=== PATIENT | female | born 1945 ===

== ENCOUNTER 2023-04-26 09:29 | Observation (INO) | payer MEDICARE ==
--- NOTE | 2023-04-26 10:23 | ED ---
Abdominal Pain HPI - General Source: patient, RN notes reviewed Mode of arrival: ambulatory Limitations: no limitations <Ventura Oleary - Last Filed: 04/26/23 10:21> <You Steven - Last Filed: 04/26/23 14:25> - General Chief Complaint: Abdominal Pain Stated Complaint: Abd Pain Time Seen by Provider: 04/26/23 10:21 - History of Present Illness Initial Comments: 77-year-old female presents emergency Department with chief complaint of right quadrant abdominal pain. Patient states is very severe last night as improved some but still having pain. She does state that she has diverticulosis she ate some popcorn but she has no lower abdominal pain. States pain radiated to her back, shoulder regions. Denies any chest pain. (Ventura Oleary) Patient was originally seen is a quick note. Briefly she is a 77-year-old female with history of hypertension and acid reflux who presents emergency Department claiming of epigastric abdominal discomfort. Patient states has started last night after she ate popcorn. Complaints of epigastric and right upper quadrant sharp, achy pain with nausea. No episodes of emesis. No diarrhea. Still passing gas. No constipation. No chest pain or shortness of breath. No fevers. No sick contacts. No history of abdominal surgeries. Presents for further evaluation of this time. (You Steven) - Related Data Home Medications Medication Instructions Recorded Confirmed Acetaminophen-Codeine 300-30mg 1 tab PO Q4-6H PRN 04/26/23 04/26/23 [Tylenol w/codeine #3] Ascorbic Acid [Vitamin C] 1,000 mg PO DAILY 04/26/23 04/26/23 Bacillus Coagulans [Digestive 1 tab PO DAILY 04/26/23 04/26/23 Advantage Probiotic Chew] Brimonidine Tartrate [Alphagan P 1 drop RIGHT EYE TID 04/26/23 04/26/23 0.2% Ophth Soln] Cholecalciferol [Vitamin D3 (25 50 mcg PO DAILY 04/26/23 04/26/23 Mcg = 1000 Iu)] Cyanocobalamin (Vitamin B-12) 1,000 mcg PO DAILY 04/26/23 04/26/23 [Vitamin B-12] Elderberry Fruit and Flower [Black 1 cap PO DAILY 04/26/23 04/26/23 Elderberry 575 mg Cap] Fish Oil/Dha/Epa [Fish Oil 1,200 1 cap PO DAILY 04/26/23 04/26/23 mg Fish Oil] Furosemide [Lasix] 20 mg PO DAILY 04/26/23 04/26/23 Losartan Potassium 50 mg PO DAILY 04/26/23 04/26/23 Multivitamins, Thera [Multivitamin 1 tab PO DAILY 04/26/23 04/26/23 (formulary)] Omeprazole 40 mg PO DAILY 04/26/23 04/26/23 Turmeric Root Extract [Turmeric] 500 mg PO DAILY 04/26/23 04/26/23 Ubidecarenone [Coenzyme Q10] 100 mg PO DAILY 04/26/23 04/26/23 Vit C/E/Zn/Coppr/Lutein/Zeaxan 1 cap PO DAILY 04/26/23 04/26/23 [Preservision Areds 2 Softgel] allopurinoL [Zyloprim] 300 mg PO DAILY 04/26/23 04/26/23 busPIRone HCL [Buspirone HCl] 7.5 mg PO BID 04/26/23 04/26/23 Allergies Allergy/AdvReac Type Severity Reaction Status Date / Time niacin Allergy Unknown Verified 04/26/23 12:26 tizanidine Allergy Unknown Verified 04/26/23 12:26 Review of Systems ROS Other: All systems not noted in ROS Statement are negative. <Ventuar Oleary - Last Filed: 04/26/23 10:21> ROS Other: All systems not noted in ROS Statement are negative. <You Steven - Last Filed: 04/26/23 14:25> ROS Statement: Those systems with pertinent positive or pertinent negative responses have been documented in the HPI. Review of Systems: CONST: Denies fever EYES: Denies blurry vision ENT: Denies nasal congestion C/V: Denies Chest pain RESP: Denies shortness of breath GI: Endorses abdominal pain : Denies dysuria SKIN: Denies rash. MSK: Denies joint pain. NEURO: Denies headache (You Steven) Past Medical History Past Medical History: Hypertension History of Any Multi-Drug Resistant Organisms: None Reported Past Surgical History: Hysterectomy Past Psychological History: Depression Past Alcohol Use History: None Reported Past Drug Use History: None Reported <Ventura Oleary - Last Filed: 04/26/23 10:21> General Exam Limitations: no limitations General appearance: alert, in no apparent distress Head exam: Present: atraumatic, normocephalic, normal inspection <Ventura Oleary - Last Filed: 04/26/23 10:21> <You Steven - Last Filed: 04/26/23 14:25> - General Exam Comments Initial Comments: Visual Physical Exam Vital signs reviewed General: Well-appearing, nontoxic, no acute distress. Head: Normocephalic, atraumatic Eyes: PERRLA, EOMI ENT: Airway patent Chest: Nonlabored breathing Skin: No visual rash, normal skin tone Neuro: Alert and oriented 3 Musculoskeletal: No gross abnormalities (Ventura Oleary) General: Appears in no acute distress. HEAD: Normal with no signs of head trauma. EYES: PERRLA, EOMI, conjunctiva normal, no discharge. ENT: Hearing grossly intact, normal oropharynx. RESPIRATORY: Clear breath sounds bilaterally. No wheezes, rales, or rhonchi. C/V: Regular rate and rhythm. S1 and S2 auscultated, no edema, peripheral pulses 2+ and intact throughout ABD: Abdomen is soft, nondistended. Tender to palpation epigastric and right upper quadrant. No guarding. No rebound tenderness. No peritoneal signs. EXT: Normal range of motion, no obvious deformity SKIN: No rashes or lesions observed on exposed skin. NEURO: Alert and Oriented 4. (You Steven) Course Vital Signs 04/26/23 09:49 Temperature 98.0 F Pulse Rate 45 L Respiratory 18 Rate Blood Pressure 119/79 O2 Sat by Pulse 98 Oximetry Medical Decision Making <Ventura Oleary - Last Filed: 04/26/23 10:21> - Lab Data Result diagrams: 04/26/23 11:49 04/26/23 11:49 - EKG Data -: EKG Interpreted by Me <You Steven - Last Filed: 04/26/23 14:25> - Medical Decision Making I performed a quick note portion of this Chart signed Ventura Oleary PA-C (Ventura Oleary) Was pt. sent in by a medical professional or institution (, [facility], [employer], urgent care, hospital, or skilled nursing...) When possible be specific @ -No Did you speak to anyone other than the patient for history (EMS, parent, family, police, friend...)? What history was obtained from this source @ -No Did you review nursing and triage notes (agree or disagree)? Why? @ -I reviewed and agree with nursing and triage notes Were old charts reviewed (outside hosp., previous admission, EMS record, old EKG, old radiological studies, urgent care reports/EKG's, skilled nursing records)? Report findings @ -Old charts reviewed Differential Diagnosis (chest pain, altered mental status, abdominal pain women, abdominal pain men, vaginal bleeding, weakness, fever, dyspnea, syncope, headache, dizziness, GI bleed, back pain, seizure, CVA, palpatations, mental health, musculoskeletal)? @ -Differential Abdominal Pain Women: Appendicitis, Cholecystitis, diverticulosis, ischemic bowel, pancreatitis, hepatitis, UTI, gastroenteritis, AAA, incarcerated hernia, bowel obstruction, constipation, inflammatory bowel, hepatitis, peptic ulcer disease, splenic infarction, perforated viscus, vulvitis, ovarian torsion, PID, kidney stone, placenta abruption, this is not meant to be an all-inclusive list EKG interpreted by me (3pts min.). @ -As above X-rays interpreted by me (1pt min.). @ -None done CT interpreted by me (1pt min.). @ -None done U/S interpreted by me (1pt. min.). @ -Ultrasound gallbladder suggestive of acute cholecystitis What testing was considered but not performed or refused? (CT, X-rays, U/S, labs)? Why? @ -None What meds were considered but not given or refused? Why? @ -None Did you discuss the management of the patient with other professionals (professionals i.e. , PA, [employer], lab, RT, psych nurse, elementary school social worker, internet merchant, teacher, housing officer, caser)? Give summary @ -Discussed with Dr. Beach who presented to the emergency department evaluated the patient bedside. Accepted the admission. Requested cardiac evaluation and medicine consult which were placed. I spoke with Dr. Ivory of medicine who agreed to consult for medical management. Patient was placed on Zosyn at her request as well. Was smoking cessation discussed for >3mins.? @ -No Was critical care preformed (if so, how long)? @ -No Were there social determinants of health that impacted care today? How? (Ho melessness, low income, unemployed, alcoholism, drug addiction, transportation, low edu. Level, literacy, decrease access to med. care, fci, rehab)? @ -No Was there de-escalation of care discussed even if they declined (Discuss DNR or withdrawal of care, Hospice)? DNR status @ -No What co-morbidities impacted this encounter? (DM, HTN, Smoking, COPD, CAD, Cancer, CVA, ARF, Chemo, Hep., AIDS, mental health diagnosis, sleep apnea, morbid obesity)? @ -None Was patient admitted / discharged? Hospital course, mention meds given and route, prescriptions, significant lab abnormalities, going to OR and other pertinent info. @ -Based on the patient's presentation and physical exam, appears that she presents with acute cholecystitis. We did obtain the abdominal work up as well as gallbladder workup. Workup was started in triage in color ultrasound returned before I evaluated the patient which revealed acute cholecystitis. I spoke with surgery on-call, Dr. Beach who was already in the department and was in agreement with the admission. Patient's labs remarkable for a leukocytosis of 15. No evidence of choledocholithiasis. Remainder of the labs within acceptable limits. Patient was symptomatically treated with IV fluids, IV pain medications, Zofran. She was started on maintenance fluids and started on Zosyn. She was made nothing by mouth. Patient was admitted in stable condition. Cardiology was consulted at Dr. Beach's request as well as an echo. EKG unremarkable. Medicine also consulted at her request for medical management and I spoke with Dr. Ivory who accepted the consult. Undiagnosed new problem with uncertain prognosis? @ -No Drug Therapy requiring intensive monitoring for toxicity (Heparin, Nitro, Insulin, Cardizem)? @ -No Were any procedures done? @ -No Diagnosis/symptom? @ -Cholecystitis Acute, or Chronic, or Acute on Chronic? @ -Acute Uncomplicated (without systemic symptoms) or Complicated (systemic symptoms)? @ -Complicated Side effects of treatment? @ -No Exacerbation, Progression, or Severe Exacerbation? @ -No Poses a threat to life or bodily function? How? (Chest pain, [place], OR, pneumonia, PE, COPD, DKA, ARF, appy, cholecystitis, CVA, Diverticulitis, Homicidal, Suicidal, threat to staff... and all critical care pts) @ -Yes (You Steven) - Lab Data Lab Results 04/26/23 04/26/23 04/26/23 Range/Units 11:49 11:49 11:49 WBC 15.0 H (3.8-10.6) k/uL RBC 4.52 (3.80-5.40) m/uL Hgb 14.1 (11.4-16.0) gm/dL Hct 44.4 (34.0-46.0) % MCV 98.1 (80.0-100.0) fL MCH 31.2 (25.0-35.0) pg MCHC 31.8 (31.0-37.0) g/dL RDW 13.9 (11.5-15.5) % Plt Count 231 (150-450) k/uL MPV 7.9 Neutrophils % 84 % Lymphocytes % 12 % Monocytes % 3 % Eosinophils % 1 % Basophils % 0 % Neutrophils # 12.6 H (1.3-7.7) k/uL Lymphocytes # 1.7 (1.0-4.8) k/uL Monocytes # 0.4 (0-1.0) k/uL Eosinophils # 0.1 (0-0.7) k/uL Basophils # 0.0 (0-0.2) k/uL Sodium 139 (137-145) mmol/L Potassium 4.8 (3.5-5.1) mmol/L Chloride 107 (98-107) mmol/L Carbon Dioxide 22 (22-30) mmol/L Anion Gap 10 mmol/L BUN 28 H (7-17) mg/dL Creatinine 0.62 (0.52-1.04) mg/dL Est GFR (CKD-EPI)AfAm >90 (>60 ml/min/1.73 sqM) Est GFR (CKD-EPI)NonAf 87 (>60 ml/min/1.73 sqM) Glucose 120 H (74-99) mg/dL Plasma Lactic Acid Edi 1.3 (0.7-2.0) mmol/L Calcium 9.8 (8.4-10.2) mg/dL Total Bilirubin 0.5 (0.2-1.3) mg/dL AST 34 (14-36) U/L ALT 22 (4-34) U/L Alkaline Phosphatase 62 (38-126) U/L Total Protein 7.1 (6.3-8.2) g/dL Albumin 4.4 (3.5-5.0) g/dL Lipase 205 (23-300) U/L Urine Color Urine Appearance (Clear) Urine pH (5.0-8.0) Ur Specific [place] (1.001-1.035) Urine Protein (Negative) Urine Glucose (UA) (Negative) Urine Ketones (Negative) Urine Blood (Negative) Urine Nitrite (Negative) Urine Bilirubin (Negative) Urine Urobilinogen (<2.0) mg/dL Ur Leukocyte Esterase (Negative) Urine RBC (0-5) /hpf Ur Squamous Epith Cells (0-4) /hpf Amorphous Sediment (None) /hpf Urine Mucus (None) /hpf Urine Yeast (Budding) (None) /hpf 04/26/23 Range/Units 13:54 WBC (3.8-10.6) k/uL RBC (3.80-5.40) m/uL Hgb (11.4-16.0) gm/dL Hct (34.0-46.0) % MCV (80.0-100.0) fL MCH (25.0-35.0) pg MCHC (31.0-37.0) g/dL RDW (11.5-15.5) % Plt Count (150-450) k/uL MPV Neutrophils % % Lymphocytes % % Monocytes % % Eosinophils % % Basophils % % Neutrophils # (1.3-7.7) k/uL Lymphocytes # (1.0-4.8) k/uL Monocytes # (0-1.0) k/uL Eosinophils # (0-0.7) k/uL Basophils # (0-0.2) k/uL Sodium (137-145) mmol/L Potassium (3.5-5.1) mmol/L Chloride (98-107) mmol/L Carbon Dioxide (22-30) mmol/L Anion Gap mmol/L BUN (7-17) mg/dL Creatinine (0.52-1.04) mg/dL Est GFR (CKD-EPI)AfAm (>60 ml/min/1.73 sqM) Est GFR (CKD-EPI)NonAf (>60 ml/min/1.73 sqM) Glucose (74-99) mg/dL Plasma Lactic Acid Edi (0.7-2.0) mmol/L Calcium (8.4-10.2) mg/dL Total Bilirubin (0.2-1.3) mg/dL AST (14-36) U/L ALT (4-34) U/L Alkaline Phosphatase (38-126) U/L Total Protein (6.3-8.2) g/dL Albumin (3.5-5.0) g/dL Lipase (23-300) U/L Urine Color Light Yellow Urine Appearance Cloudy H (Clear) Urine pH 7.0 (5.0-8.0) Ur Specific [place] 1.020 (1.001-1.035) Urine Protein Trace H (Negative) Urine Glucose (UA) Negative (Negative) Urine Ketones Negative (Negative) Urine Blood Negative (Negative) Urine Nitrite Negative (Negative) Urine Bilirubin Negative (Negative) Urine Urobilinogen <2.0 (<2.0) mg/dL Ur Leukocyte Esterase Negative (Negative) Urine RBC 2 (0-5) /hpf Ur Squamous Epith Cells 1 (0-4) /hpf Amorphous Sediment Rare H (None) /hpf Urine Mucus Rare H (None) /hpf Urine Yeast (Budding) Rare H (None) /hpf - EKG Data EKG Comments: 12-lead Electrocardiogram Interpretation Note EKG was reviewed and interpreted by myself. 12-lead ECG performed at 0957 is interpreted by me as revealing sinus bradycardia at a rate of 47 beats per minute. Left axis deviation. UT interval is 195 ms, QRS durations 122 ms, QTc is 435 ms.. There were no ST or T wave abnormalities to suggest myocardial ischemia or injury. R wave progression across the precordium was delayed. By my interpretation this EKG is non-diagnostic for acute ischemia. (You Steven) Disposition <Ventura Oleary - Last Filed: 04/26/23 10:21> Time of Disposition: 13:15 <You Steven - Last Filed: 04/26/23 14:25> Clinical Impression: Cholecystitis Disposition: ADMITTED IP TO THIS HOSP Condition: Stable
--- NOTE | 2023-04-26 11:49 | US ---
EXAMINATION TYPE: US gallbladder DATE OF EXAM: 04/26/2023 COMPARISON: NONE CLINICAL INDICATION: Female, 77 years old with history of pain; Nausea, epigastric/RUQ pain TECHNIQUE: Multiple sonographic images of the right upper quadrant are obtained. FINDINGS: EXAM MEASUREMENTS: Liver Length: 17.6 cm Gallbladder Wall: 0.4 cm CBD: 0.5 cm Right Kidney: 11.4 x 3.2 x 4.4 cm Pancreas: Obscured by bowel gas Liver: attenuating Gallbladder: stones with posterior shadowing Evidence for sonographic Marinelli's sign: yes CBD: appears wnl as visualized Right Kidney: no evidence of hydronephrosis IMPRESSION: 1. Hepatomegaly. 2. Cholelithiasis. Some wall thickening is present. Consider acute cholecystitis.
[2023-04-26] MEDS ORDERED: SODIUM CHLORIDE 0.9% 1,000 ML IV STA ×2 (12:24→14:08)
[2023-04-26] MEDS ORDERED: MAG HYDROX/AL HYDROX/SIMETH 30 ML, HYOSCYAMINE ELIXIR 10 ML, LIDOCAINE 2% GLYDO JELLY 1... PO STA ×3 (12:24)
[2023-04-26] MEDS ORDERED: METOCLOPRAMIDE 5 MG/ML 2 ML VIAL IVP STA (12:24)
[2023-04-26 12:39] LABS: ALT 22 U/L (4-34); AST 34 U/L (14-36); African American GFR (CKD) >90 (>60 ml/min/1.73 sqM); Albumin 4.4 g/dL (3.5-5.0); Alkaline Phosphatase 62 U/L (38-126); Anion Gap 10 mmol/L; Blood Urea Nitrogen 28 mg/dL (7-17); Calcium 9.8 mg/dL (8.4-10.2); Carbon Dioxide 22 mmol/L (22-30); Chloride 107 mmol/L (98-107); Glucose 120 mg/dL (74-99); Lipase 205 U/L (23-300); Non-African American GFR(CKD) 87 (>60 ml/min/1.73 sqM); Potassium 4.8 mmol/L (3.5-5.1); Sodium 139 mmol/L (137-145); Total Bilirubin 0.5 mg/dL (0.2-1.3); Total Protein 7.1 g/dL (6.3-8.2)
[2023-04-26] MEDS ORDERED: NALOXONE 0.4 MG/ML 1 ML VIAL IV PRN (13:57)
[2023-04-26 14:07] LABS: Basophils % (A) 0 %; Eosinophils # (A) 0.1 k/uL (0-0.7); Eosinophils % (A) 1 %; HCT 44.4 % (34.0-46.0); HGB 14.1 gm/dL (11.4-16.0); Lymphocytes # (A) 1.7 k/uL (1.0-4.8); Lymphocytes % (A) 12 %; MCH 31.2 pg (25.0-35.0); MCHC 31.8 g/dL (31.0-37.0); MCV 98.1 fL (80.0-100.0); Mean Platelet Volume 7.9; Monocytes # (A) 0.4 k/uL (0-1.0); Monocytes % (A) 3 %; Neutrophils # (A) 12.6 k/uL (1.3-7.7); Neutrophils % (A) 84 %; Platelet Count 231 k/uL (150-450); RBC 4.52 m/uL (3.80-5.40); RDW 13.9 % (11.5-15.5)
[2023-04-26 14:13] LABS: Amorphous Sediment,Urine Rare /hpf; Appearance,Urine Cloudy (Clear); Bilirubin,Urine Negative (Negative); Blood,Urine Negative (Negative); Budding Yeast,Urine Rare /hpf; Color,Urine Light Yellow; Glucose,Urine (UA) Negative (Negative); Ketones,Urine Negative (Negative); Leukocyte Esterase,Urine Negative (Negative); Mucus,Urine Rare /hpf; Nitrite,Urine Negative (Negative); Protein,Urine Trace (Negative); RBC,Urine 2 /hpf (0-5); Squamous Epithelial Cell,Urine 1 /hpf (0-4); Urobilinogen,Urine <2.0 mg/dL (<2.0)
--- NOTE | 2023-04-26 14:25 | P.GSHP ---
History of Present Illness H&P Date: 04/26/23 CHIEF COMPLAINT: Abdominal pain HISTORY OF PRESENT ILLNESS: This is a 77-year-old female who presented to the hospital with complaints of right upper quadrant abdominal pain that started around 9:00 last night. She reports that she ate a Flower salad with guacamole and [place] dressing. She also ate popcorn. She reports the pain started in the right upper quadrant it radiated up into the shoulders and back and across the upper abdomen. Also had discomfort in both arms. She had nausea and dry heaves. She's been complaining of indigestion-type symptoms. Also had episode of diarrhea. She denies any chest pain. She denies any fever, chills or sweats. She does have a known medical history of hiatal hernia and diverticulitis. Surgical history includes tubal ligation and hysterectomy. Gallbladder ultrasound did show cholelithiasis with gallbladder wall thickening. Consider acute cholecystitis. Hepatomegaly. Patient denies any cardiac history. Denies any smoking or alcohol use. PAST MEDICAL HISTORY: See list. PAST SURGICAL HISTORY: See list. MEDICATIONS: See list. ALLERGIES: See list. SOCIAL HISTORY: No illicit drug use. REVIEW OF SYSTEMS: CONSTITUTIONAL: Denies fever or chills. HEENT: Denies blurred vision, vision changes, or eye pain. Denies hemoptysis ENDOCRINE: Denies heat or cold intolerance. CARDIOVASCULAR: Denies chest pain or pressure. RESPIRATORY: No shortness of breath. GASTROINTESTINAL: Denies abdominal pain. Denies nausea or vomiting. NEURO: Denies history of seizures. PSYCH: No depression or suicidal ideation HEMATOLOGIC: Denies bleeding disorders. LYMPHATIC: The patient denies any lumps and bumps around the neck. GENITOURINARY: Denies any blood in urine or increased urinary frequency. MUSCULOSKELETAL: Denies myalgias. Denies joint swelling. Denies decreased range of motion beyond patients baseline. SKIN: Denies pruitis. Denies rash. PHYSICAL EXAM: VITAL SIGNS: Reviewed GENERAL: Well-developed in no acute distress. HEENT: No sclera icterus. Extraocular movements grossly intact. Moist buccal mucosa. Head is atraumatic, normocephalic. Hears conversational speech. No nasal drainage. NECK: Supple without lymphadenopathy. CHEST: Non-labored respirations and equal bilateral excursions. CARDIOVASCULAR: Palpable 2+ radial pulses. ABDOMEN: Soft. Nondistended. Tenderness to palpation in the right upper quadrant MUSCULOSKELETAL: No clubbing or cyanosis. NEUROLOGIC: No focal or lateralizing signs. Cranial nerves II through XII grossly intact. PSYCH: Appropriate affect. Alert and oriented to person, place and time. SKIN: Well perfused. Good skin turgor. LABORATORY DATA: WBC 15 Hgb 14.1 platelets 231 Sodium 139 potassium 4.8 creatinine 0.62 Lactic acid 1.3 LFTs normal lipase 205 IMAGING: Gallbladder ultrasound hepatomegaly. Cholelithiasis with wall thickening present. Consider acute cholecystitis. Positive Marinelli sign. ASSESSMENT: 1. Acute cholecystitis with cholelithiasis and gallbladder wall thickening 2. Hypertension 3. History of hiatal hernia PLAN: -Patient scheduled for Robotic cholecystectomy -Continue IV antibiotics -Continue pain medication and antiemetics as needed -Cardiology consulted for cardiac clearance Physician [employer] note has been reviewed by physician. Signing provider agrees with the documented findings, assessment, and plan of care. Past Medical History Past Medical History: Hypertension History of Any Multi-Drug Resistant Organisms: None Reported Past Surgical History: Hysterectomy Past Psychological History: Depression Past Alcohol Use History: None Reported Past Drug Use History: None Reported Medications and Allergies Home Medications Medication Instructions Recorded Confirmed Type Acetaminophen-Codeine 300-30mg 1 tab PO Q4-6H PRN 04/26/23 04/26/23 History [Tylenol w/codeine #3] Ascorbic Acid [Vitamin C] 1,000 mg PO DAILY 04/26/23 04/26/23 History Bacillus Coagulans [Digestive 1 tab PO DAILY 04/26/23 04/26/23 History Advantage Probiotic Chew] Brimonidine Tartrate [Alphagan P 1 drop RIGHT EYE TID 04/26/23 04/26/23 History 0.2% Ophth Soln] Cholecalciferol [Vitamin D3 (25 50 mcg PO DAILY 04/26/23 04/26/23 History Mcg = 1000 Iu)] Cyanocobalamin (Vitamin B-12) 1,000 mcg PO DAILY 04/26/23 04/26/23 History [Vitamin B-12] Elderberry Fruit and Flower [Black 1 cap PO DAILY 04/26/23 04/26/23 History Elderberry 575 mg Cap] Fish Oil/Dha/Epa [Fish Oil 1,200 1 cap PO DAILY 04/26/23 04/26/23 History mg Fish Oil] Furosemide [Lasix] 20 mg PO DAILY 04/26/23 04/26/23 History Losartan Potassium 50 mg PO DAILY 04/26/23 04/26/23 History Multivitamins, Thera [Multivitamin 1 tab PO DAILY 04/26/23 04/26/23 History (formulary)] Omeprazole 40 mg PO DAILY 04/26/23 04/26/23 History Turmeric Root Extract [Turmeric] 500 mg PO DAILY 04/26/23 04/26/23 History Ubidecarenone [Coenzyme Q10] 100 mg PO DAILY 04/26/23 04/26/23 History Vit C/E/Zn/Coppr/Lutein/Zeaxan 1 cap PO DAILY 04/26/23 04/26/23 History [Preservision Areds 2 Softgel] allopurinoL [Zyloprim] 300 mg PO DAILY 04/26/23 04/26/23 History busPIRone HCL [Buspirone HCl] 7.5 mg PO BID 04/26/23 04/26/23 History Allergies Allergy/AdvReac Type Severity Reaction Status Date / Time niacin Allergy Unknown Verified 04/26/23 12:26 tizanidine Allergy Unknown Verified 04/26/23 12:26 Surgical - Exam Vital Signs Temp Pulse Resp BP Pulse Ox 98.0 F 45 L 18 119/79 98 04/26/23 09:49 04/26/23 09:49 04/26/23 09:49 04/26/23 09:49 04/26/23 09:49 Results - Labs 04/26/23 11:49 04/26/23 11:49 Abnormal Lab Results - Last 24 Hours (Table) 04/26/23 04/26/23 04/26/23 Range/Units 11:49 11:49 13:54 WBC 15.0 H (3.8-10.6) k/uL Neutrophils # 12.6 H (1.3-7.7) k/uL BUN 28 H (7-17) mg/dL Glucose 120 H (74-99) mg/dL Urine Appearance Cloudy H (Clear) Urine Protein Trace H (Negative) Amorphous Sediment Rare H (None) /hpf Urine Mucus Rare H (None) /hpf Urine Yeast (Budding) Rare H (None) /hpf Diabetes panel 04/26/23 Range/Units 11:49 Sodium 139 (137-145) mmol/L Potassium 4.8 (3.5-5.1) mmol/L Chloride 107 (98-107) mmol/L Carbon Dioxide 22 (22-30) mmol/L BUN 28 H (7-17) mg/dL Creatinine 0.62 (0.52-1.04) mg/dL Glucose 120 H (74-99) mg/dL Calcium 9.8 (8.4-10.2) mg/dL AST 34 (14-36) U/L ALT 22 (4-34) U/L Alkaline Phosphatase 62 (38-126) U/L Total Protein 7.1 (6.3-8.2) g/dL Albumin 4.4 (3.5-5.0) g/dL Calcium panel 04/26/23 Range/Units 11:49 Calcium 9.8 (8.4-10.2) mg/dL Albumin 4.4 (3.5-5.0) g/dL Pituitary panel 04/26/23 Range/Units 11:49 Sodium 139 (137-145) mmol/L Potassium 4.8 (3.5-5.1) mmol/L Chloride 107 (98-107) mmol/L Carbon Dioxide 22 (22-30) mmol/L BUN 28 H (7-17) mg/dL Creatinine 0.62 (0.52-1.04) mg/dL Glucose 120 H (74-99) mg/dL Calcium 9.8 (8.4-10.2) mg/dL Adrenal panel 04/26/23 Range/Units 11:49 Sodium 139 (137-145) mmol/L Potassium 4.8 (3.5-5.1) mmol/L Chloride 107 (98-107) mmol/L Carbon Dioxide 22 (22-30) mmol/L BUN 28 H (7-17) mg/dL Creatinine 0.62 (0.52-1.04) mg/dL Glucose 120 H (74-99) mg/dL Calcium 9.8 (8.4-10.2) mg/dL Total Bilirubin 0.5 (0.2-1.3) mg/dL AST 34 (14-36) U/L ALT 22 (4-34) U/L Alkaline Phosphatase 62 (38-126) U/L Total Protein 7.1 (6.3-8.2) g/dL Albumin 4.4 (3.5-5.0) g/dL
[2023-04-26] MEDS: BRIMONIDINE TARTRATE 0.2% DROPS 5 ML BTL RIGHT EYE SCH ×2 (16:00→21:32)
[2023-04-26] MEDS: PIPERACILLIN-TAZOBACTAM 3.375 GM in SODIUM CHLORIDE 0.9% 100 ML IVPB SCH (18:00)
[2023-04-26] MEDS ORDERED: LOSARTAN 50 MG TAB PO STA (19:49)
[2023-04-26] MEDS: busPIRone HCl 5 MG TAB PO SCH (21:31)
[2023-04-26] MEDS: SODIUM CHLORIDE 0.9% 1,000 ML IV SCH (21:32)
[2023-04-27] MEDS: PIPERACILLIN-TAZOBACTAM 3.375 GM in SODIUM CHLORIDE 0.9% 100 ML IVPB SCH ×4 (00:16→16:58)
--- NOTE | 2023-04-27 00:16 | P.CONS ---
History of Present Illness - Reason for Consult Consult date: 04/26/23 Medical management - Chief Complaint Abdominal pain - History of Present Illness Patient is a 77-year-old female with a known history of hypertension, osteoarthritis, history of endometrial cancer, depression presents to ER with complaints of abdominal pain mainly in the right upper quadrant and radiating to the back. With also complaining of left shoulder pain. Patient has been having symptoms since 9 PM last night. She did have episodes of diarrhea with loose stools as well. Denies any complaints of fever or chills. Patient felt nauseous. No episodes of vomiting. No complaints of chest tightness/pain. No shortness of breath. Patient states that she ate popcorn yesterday. Denied lower abdominal pain. No recent illnesses or sick contacts. Ultrasound gallbladder showed hepatomegaly, cholelithiasis and some wall thickening is present. Consider acute cholecystitis. EKG showed sinus bradycardia. Laboratory data showed WBC 15.0 hemoglobin 14.1 and platelets 231 Sodium 139 potassium 4.8 chloride 107 bicarb is 22 BUN 28 and creatinine 0.62 and blood sugar is 120. Urinalysis showed cloudy with trace protein. No WBCs. Review of Systems Constitutional: Patient denies any fever or chills . no Generalized weakness. Abdomen: Patient does complain of nausea and abdominal pain mainly right upper quadrant. Did have diarrhea. Cardiovascular: Patient denies any chest pain or short of breath no palpitations. Respiratory: patient denied any cough . no sputum production. No shortness of breath Neurologic: Patient denied any numbness or tingling headache. Musculoskeletal: Patient denies any complaints of joint swelling or deformity. Skin: Negative Psychiatric: Negative Endocrine: No heat or cold intolerance. No recent weight gain. Genitourinary: No dysuria or hematuria. All other 14 point ROS negative except the above Past Medical History Past Medical History: Cancer, Hypertension, Osteoarthritis (OA) Additional Past Medical History / Comment(s): endometrial cancer with hyst History of Any Multi-Drug Resistant Organisms: None Reported Past Surgical History: Hysterectomy, Tubal Ligation Additional Past Surgical History / Comment(s): cataract sx right eye Past Anesthesia/Blood Transfusion Reactions: No Reported Reaction Past Psychological History: Depression Smoking Status: Never smoker Past Alcohol Use History: None Reported Past Drug Use History: None Reported - Past Family History Father Family Medical History: Myocardial Infarction ([place]) Medications and Allergies Home Medications Medication Instructions Recorded Confirmed Type Acetaminophen-Codeine 300-30mg 1 tab PO Q4-6H PRN 04/26/23 04/26/23 History [Tylenol w/codeine #3] Ascorbic Acid [Vitamin C] 1,000 mg PO DAILY 04/26/23 04/26/23 History Bacillus Coagulans [Digestive 1 tab PO DAILY 04/26/23 04/26/23 History Advantage Probiotic Chew] Brimonidine Tartrate [Alphagan P 1 drop RIGHT EYE TID 04/26/23 04/26/23 History 0.2% Ophth Soln] Cholecalciferol [Vitamin D3 (25 50 mcg PO DAILY 04/26/23 04/26/23 History Mcg = 1000 Iu)] Cyanocobalamin (Vitamin B-12) 1,000 mcg PO DAILY 04/26/23 04/26/23 History [Vitamin B-12] Elderberry Fruit and Flower [Black 1 cap PO DAILY 04/26/23 04/26/23 History Elderberry 575 mg Cap] Fish Oil/Dha/Epa [Fish Oil 1,200 1 cap PO DAILY 04/26/23 04/26/23 History mg Fish Oil] Furosemide [Lasix] 20 mg PO DAILY 04/26/23 04/26/23 History Losartan Potassium 50 mg PO DAILY 04/26/23 04/26/23 History Multivitamins, Thera [Multivitamin 1 tab PO DAILY 04/26/23 04/26/23 History (formulary)] Omeprazole 40 mg PO DAILY 04/26/23 04/26/23 History Turmeric Root Extract [Turmeric] 500 mg PO DAILY 04/26/23 04/26/23 History Ubidecarenone [Coenzyme Q10] 100 mg PO DAILY 04/26/23 04/26/23 History Vit C/E/Zn/Coppr/Lutein/Zeaxan 1 cap PO DAILY 04/26/23 04/26/23 History [Preservision Areds 2 Softgel] allopurinoL [Zyloprim] 300 mg PO DAILY 04/26/23 04/26/23 History busPIRone HCL [Buspirone HCl] 7.5 mg PO BID 04/26/23 04/26/23 History Allergies Allergy/AdvReac Type Severity Reaction Status Date / Time niacin Allergy Unknown Verified 04/26/23 12:26 tizanidine Allergy Unknown Verified 04/26/23 12:26 Physical Exam Vitals: Vital Signs Temp Pulse Pulse Resp BP BP Pulse Ox 04/26/23 15:38 97.7 F 52 L 16 162/62 98 04/26/23 09:49 98.0 F 45 L 18 119/79 98 Intake and Output 04/26/23 04/26/23 04/26/23 06:59 14:59 22:59 Intake Total 300 Balance 300 Intake: Oral 300 Other: Weight 86.183 kg 86.183 kg PHYSICAL EXAMINATION: Patient is lying in the bed comfortably, no acute distress, awake alert and oriented.. HEENT: Normocephalic. Neck is supple. Pupils reactive. Nostrils clear. Oral cavity is moist. Neck reveals no JVD, carotid bruits, or thyromegaly. CHEST EXAMINATION: Trachea is central. Symmetrical expansion. Lung chinchilla clear to auscultation and percussion. CARDIAC: Normal S1, S2 with no gallops. No murmurs ABDOMEN: Soft. Bowel sounds present. Mild right upper quadrant tenderness. No guarding or rigidity.. No organomegaly. No abdominal bruits. Extremities: reveal no edema. No clubbing or cyanosis Neurologically awake, alert, oriented x3 with well-coordinated movements. No focal deficits noted Skin: No rash or skin lesions. Psychiatric: Coperative. Nonsuicidal, Musculoskeletal: No joint swelling or deformity. Normal range of motion. Results CBC & Chem 7: 04/26/23 11:49 04/26/23 11:49 Labs: Abnormal Lab Results - Last 24 Hours (Table) 04/26/23 04/26/23 04/26/23 Range/Units 11:49 11:49 13:54 WBC 15.0 H (3.8-10.6) k/uL Neutrophils # 12.6 H (1.3-7.7) k/uL BUN 28 H (7-17) mg/dL Glucose 120 H (74-99) mg/dL Urine Appearance Cloudy H (Clear) Urine Protein Trace H (Negative) Amorphous Sediment Rare H (None) /hpf Urine Mucus Rare H (None) /hpf Urine Yeast (Budding) Rare H (None) /hpf Assessment and Plan Assessment: Right upper quadrant pain likely due to acute cholecystitis. Cholelithiasis and gallbladder wall thickening as noted on the ultrasound. Left shoulder pain possible referred pain from diaphragm. Rule out ACS. Sinus bradycardia Hypertension History of hiatal hernia Anxiety DVT prophylaxis Plan: Patient will be continued on IV hydration and antibiotics in the form of Zosyn. We will start back on home blood pressure medications losartan and Lasix. Follow-up troponin and TSH levels. Cardiology was consulted for evaluation. We will continue to follow further recommendations based on the clinical course. Thank you for your consult. Time with Patient: Greater than 30
[2023-04-27] MEDS: MORPHINE SULFATE 4 MG/ML SYRINGE IV PRN ×2 (01:18→16:57)
[2023-04-27] MEDS: ONDANSETRON 4 MG/2 ML VIAL IVP PRN ×2 (01:18→14:45)
[2023-04-27] MEDS ORDERED: PANTOPRAZOLE 40 MG/10 ML VIAL IVP STA (01:48)
[2023-04-27] MEDS ORDERED: SIMETHICONE 80 MG CHEWABLE PO PRN (02:00)
--- NOTE | 2023-04-27 07:38 | CA ---
Transthoracic Echo Report Name: Gianna Wheatley Age: 77 Gender: F : 1945 Exam Date: 04/26/2023 14:29 Exam Location: [facility] Ht (in): 60 Wt (lb): 190 Ordering Physician: Autumn Beach MD Attending/Referring Phys: Baylee BONILLA Radiation Safety Officer Dion Cano Procedure CPT: Indications: abnormal ekg, chest pain Cardiac Hx: Technical Quality: Technically difficult study Contrast 1: Total Dose (mL): Contrast 2: Total Dose (mL): MEASUREMENTS (Male / Female) Normal Values 2D ECHO LV Diastolic Diameter PLAX 4.3 cm 4.2 - 5.9 / 3.9 - 5.3 cm LV Systolic Diameter PLAX 2.8 cm IVS Diastolic Thickness 0.9 cm 0.6 - 1.0 / 0.6 - 0.9 cm LVPW Diastolic Thickness 1.0 cm 0.6 - 1.0 / 0.6 - 0.9 cm LV Relative Wall Thickness 0.4 RV Internal Dim ED PLAX 2.9 cm LVOT Diameter 2.2 cm Aortic Root Diameter 2.9 cm LA Systolic Diameter LX 2.6 cm 3.0 - 4.0 / 2.7 - 3.8 cm LV Diastolic Volume MOD BP 50.1 cm??? 67 - 155 / 56 - 104 cm??? LV Systolic Volume MOD BP 22.4 cm??? 22 - 58 / 19 - 49 cm??? LV Ejection Fraction MOD BP 55.4 % >= 55 % LV Cardiac Index MOD BP 894.3 cm???/min???m??? LV Diastolic Volume MOD 4C 50.0 cm??? LV Systolic Volume MOD 4C 19.6 cm??? LV Ejection Fraction MOD 4C 60.8 % LV Cardiac Index MOD 4C 979.3 cm???/min???m??? LV Diastolic Length 4C 6.4 cm LV Systolic Length 4C 5.3 cm LV Diastolic Volume MOD 2C 49.9 cm??? LV Systolic Volume MOD 2C 25.3 cm??? LV Ejection Fraction MOD 2C 49.2 % LV Cardiac Index MOD 2C 791.8 cm???/min???m??? LV Diastolic Length 2C 6.3 cm LV Systolic Length 2C 5.6 cm LA Volume 42.2 cm??? 18 - 58 / 22 - 52 cm??? DOPPLER AV Peak Velocity 184.5 cm/s AV Peak Gradient 13.6 mmHg LVOT Peak Velocity 112.6 cm/s LVOT Peak Gradient 5.1 mmHg LVOT Velocity Time Integral 27.3 cm LVOT Stroke Volume 105.4 cm??? LVOT Stroke Volume Index 57.7 ml/m??? LVOT Cardiac Index 3395.6 cm???/min???m??? AV Area Cont Eq pk 2.4 cm??? MV Peak Velocity 169.7 cm/s MV Peak Gradient 11.5 mmHg MV Mean Velocity 64.8 cm/s MV Mean Gradient 2.3 mmHg MV Velocity Time Integral 52.0 cm MR Peak Velocity 381.0 cm/s MR Peak Gradient 58.1 mmHg Mitral E Point Velocity 92.3 cm/s Mitral A Point Velocity 148.4 cm/s Mitral E to A Ratio 0.6 MV Deceleration Time 319.2 ms MV E' Velocity 5.6 cm/s Mitral E to MV E' Ratio 16.6 TR Peak Velocity 136.6 cm/s TR Peak Gradient 7.5 mmHg Right Ventricular Systolic Press 12.5 mmHg PV Peak Velocity 106.2 cm/s PV Peak Gradient 4.5 mmHg FINDINGS Left Ventricle Normal LV size and wall thickness. Left ventricular ejection fraction is estimated at 55-60 %.normal left ventricular wall motion. Right Ventricle Normal right ventricular size. Right Atrium Normal right atrial size. Left Atrium Normal left atrial size. Mitral Valve Structurally normal mitral valve. Mild MR. Aortic Valve Trileaflet aortic valve is not well visualized.. No aortic valve stenosis or regurgitation.aortic valve sclerosis. Tricuspid Valve Structurally normal tricuspid valve. Mild TR. Pulmonic Valve Pulmonic valve not well visualized. Mild PI. Pericardium Normal pericardium. Aorta Normal size aortic root. CONCLUSIONS 1. Normal left ventricle size and systolic function 2. Mild mitral, tricuspid and pulmonic regurgitation with no evidence of pulmonary hypertension Previewed by: Dr. Makenzie Jeffrey MD (Electronically Signed) Final Date: 27 April 2023 07:37
[2023-04-27 08:37] LABS: Basophils # (A) 0.03 X 10*3/uL (0.00-0.10); Basophils % (A) 0.2 %; Eosinophils # (A) 0 X 10*3/uL (0.04-0.35); Eosinophils % (A) 0 %; HCT 38.1 % (37.2-46.3); Lymphocytes # (A) 0.97 X 10*3/uL (0.90-5.00); Lymphocytes % (A) 6.3 %; MCH 30.8 pg (27.0-32.0); MCHC 31.5 d/dL (32.0-37.0); MCV 97.9 FL (80.0-97.0); Mean Platelet Volume 10.7 FL (9.5-12.2); Monocytes # (A) 1.27 X 10*3/uL (0.20-1.00); Monocytes % (A) 8.2 %; NRBC Per 100 WBC 0 X 10*3/uL (0.00-0.01); Neutrophils # (A) 13.07 X 10*3/uL (1.80-7.70); Neutrophils % (A) 84.9 %; Platelet Count 221 X 10*3/uL (140-440); RBC 3.89 X 10*6/uL (4.10-5.20); RDW 14.8 % (11.5-14.5)
[2023-04-27] MEDS: busPIRone HCl 5 MG TAB PO SCH ×2 (08:41→20:08)
[2023-04-27] MEDS ORDERED: PANTOPRAZOLE 40 MG TABLET PO SCH (09:00)
--- NOTE | 2023-04-27 09:09 | P.CRDCN ---
History of Present Illness History of present illness: HISTORY OF PRESENT ILLNESS: This is a 77-year-old female with a past medical history significant for hypertension. Patient follows with a Dr. Granados in [facility]. We have been asked to see the patient in consultation for cardiac clearance. Patient examined at the bedside. Patient presented to the hospital with a chief complaint of abdominal pain. Patient was found to have acute cholecystitis and is scheduled to undergo surgical intervention today with Dr. Beach. Patient denies any chest pain or pressure. She denies any shortness of breath. She states that she is generally fairly and active. She states if she were to walk a mile she would get pretty short of breath. She is a nonsmoker. She denies any previous history of coronary artery disease. She states that she saw her poultry boner in June of last year. She underwent Lexiscan stress test at that time which was negative for ischemia. * EKG reveals sinus bradycardia with no signs of acute ischemia. Left anterior fascicular block. * Laboratory data: W BC 15.4. Hemoglobin 12.0. Platelet count 221. Sodium 139. Potassium 4.8. BUN 28. Creatinine 0.62. Lactic acid 1.3. Troponin negative 1. * Current home cardiac medications include losartan 50 mg daily and Lasix 20 mg daily * Echocardiogram obtained this admission reveals an ejection fraction 55-60%, mild TR, mild PI, mild MR REVIEW OF SYSTEMS: At the time of my exam: CONSTITUTIONAL: Denies fever or chills. HEENT: Denies blurred vision, vision changes, or eye pain. Denies hemoptysis CARDIOVASCULAR: Denies chest pain. Denies orthopnea. Denies PND. Denies palpitations RESPIRATORY: Denies shortness of breath. GASTROINTESTINAL: Reports abdominal pain. Denies nausea or vomiting. HEMATOLOGIC: Denies bleeding disorders. GENITOURINARY: Denies any blood in urine. SKIN: Denies pruitis. Denies rash. PHYSICAL EXAM: VITAL SIGNS: Reviewed. GENERAL: Well-developed in no acute distress. HEENT: Head is normocephalic. Pupils are equal, round. Sclerae anicteric. Mucous membranes of the mouth are moist. Neck supple. No JVD or thyromegaly LUNGS: Respirations even and unlabored. Lungs essentially clear to auscultation bilaterally. HEART: Regular rate and rhythm. S1 and S2 heard. Systolic murmur noted ABDOMEN: Soft. Nondistended. Nontender. EXTREMITIES: Normal range of motion. No clubbing or cyanosis. Peripheral pulses intact. No lower extremity edema NEUROLOGIC: Awake and alert. Oriented x 3. ASSESSMENT: Abdominal pain Leukocytosis Acute cholecystitis Hypertension Morbid obesity: BMI 37.1 History of hiatal hernia PLAN: 2-D echo obtained and reviewed Records obtained from patient's primary poultry boner. Patient underwent Lexiscan stress test in June 2022 which was negative for ischemia Continue current cardiac medications Patient has no complaints of angina and is clinically not in congestive heart failure. She is at low risk to undergo surgical intervention from a cardiac standpoint. There are no absolute contraindications for patient to proceed with surgery today. Further recommendations pending patient's course Nurse practitioner note has been reviewed by physician. Signing provider agrees with the documented findings, assessment, and plan of care. Past Medical History Past Medical History: Cancer, Hypertension, Osteoarthritis (OA) Additional Past Medical History / Comment(s): endometrial cancer with hyst History of Any Multi-Drug Resistant Organisms: None Reported Past Surgical History: Hysterectomy, Tubal Ligation Additional Past Surgical History / Comment(s): cataract sx right eye Past Anesthesia/Blood Transfusion Reactions: No Reported Reaction Past Psychological History: Depression Smoking Status: Never smoker Past Alcohol Use History: None Reported Past Drug Use History: None Reported - Past Family History Father Family Medical History: Myocardial Infarction ([place]) Medications and Allergies Home Medications Medication Instructions Recorded Confirmed Type Acetaminophen-Codeine 300-30mg 1 tab PO Q4-6H PRN 04/26/23 04/26/23 History [Tylenol w/codeine #3] Ascorbic Acid [Vitamin C] 1,000 mg PO DAILY 04/26/23 04/26/23 History Bacillus Coagulans [Digestive 1 tab PO DAILY 04/26/23 04/26/23 History Advantage Probiotic Chew] Brimonidine Tartrate [Alphagan P 1 drop RIGHT EYE TID 04/26/23 04/26/23 History 0.2% Ophth Soln] Cholecalciferol [Vitamin D3 (25 50 mcg PO DAILY 04/26/23 04/26/23 History Mcg = 1000 Iu)] Cyanocobalamin (Vitamin B-12) 1,000 mcg PO DAILY 04/26/23 04/26/23 History [Vitamin B-12] Elderberry Fruit and Flower [Black 1 cap PO DAILY 04/26/23 04/26/23 History Elderberry 575 mg Cap] Fish Oil/Dha/Epa [Fish Oil 1,200 1 cap PO DAILY 04/26/23 04/26/23 History mg Fish Oil] Furosemide [Lasix] 20 mg PO DAILY 04/26/23 04/26/23 History Losartan Potassium 50 mg PO DAILY 04/26/23 04/26/23 History Multivitamins, Thera [Multivitamin 1 tab PO DAILY 04/26/23 04/26/23 History (formulary)] Omeprazole 40 mg PO DAILY 04/26/23 04/26/23 History Turmeric Root Extract [Turmeric] 500 mg PO DAILY 04/26/23 04/26/23 History Ubidecarenone [Coenzyme Q10] 100 mg PO DAILY 04/26/23 04/26/23 History Vit C/E/Zn/Coppr/Lutein/Zeaxan 1 cap PO DAILY 04/26/23 04/26/23 History [Preservision Areds 2 Softgel] allopurinoL [Zyloprim] 300 mg PO DAILY 04/26/23 04/26/23 History busPIRone HCL [Buspirone HCl] 7.5 mg PO BID 04/26/23 04/26/23 History Allergies Allergy/AdvReac Type Severity Reaction Status Date / Time niacin Allergy Unknown Verified 04/26/23 12:26 pantoprazole [From Protonix] Allergy Nausea Verified 04/27/23 08:45 tizanidine Allergy Unknown Verified 04/26/23 12:26 Physical Exam Vitals: Vital Signs Temp Pulse Pulse Resp BP BP Pulse Ox 04/27/23 01:40 99.1 F 60 18 162/75 93 L 04/26/23 19:35 99.1 F 52 L 16 170/83 98 04/26/23 15:38 97.7 F 52 L 16 162/62 98 04/26/23 09:49 98.0 F 45 L 18 119/79 98 Intake and Output 04/26/23 04/27/23 04/27/23 22:59 06:59 14:59 Intake Total 300 Balance 300 Intake: Oral 300 Other: # Voids 2 Weight 86.183 kg Results 04/27/23 05:49 04/26/23 11:49 Cardiac Enzymes 04/26/23 04/27/23 Range/Units 11:49 00:42 AST 34 (14-36) U/L Troponin I <0.012 (0.000-0.034) ng/mL CBC 04/26/23 Range/Units 11:49 WBC 15.0 H (3.8-10.6) k/uL RBC 4.52 (3.80-5.40) m/uL Hgb 14.1 (11.4-16.0) gm/dL Hct 44.4 (34.0-46.0) % Plt Count 231 (150-450) k/uL Comprehensive Metabolic Panel 04/26/23 Range/Units 11:49 Sodium 139 (137-145) mmol/L Potassium 4.8 (3.5-5.1) mmol/L Chloride 107 (98-107) mmol/L Carbon Dioxide 22 (22-30) mmol/L BUN 28 H (7-17) mg/dL Creatinine 0.62 (0.52-1.04) mg/dL Glucose 120 H (74-99) mg/dL Calcium 9.8 (8.4-10.2) mg/dL AST 34 (14-36) U/L ALT 22 (4-34) U/L Alkaline Phosphatase 62 (38-126) U/L Total Protein 7.1 (6.3-8.2) g/dL Albumin 4.4 (3.5-5.0) g/dL Current Medications Generic Name Dose Route Start Last Admin Trade Name Freq PRN Reason Stop Dose Admin Allopurinol 300 mg 04/27/23 09:00 Allopurinol 300 Mg Tab PO DAILY [facility] Brimonidine Tartrate 1 drops 04/26/23 16:00 04/26/23 21:32 Brimonidine Tartrate 0.2% Drops 5 Ml Btl RIGHT EYE 1 drops TID SASHA Administration Buspirone HCl 7.5 mg 04/26/23 21:00 04/26/23 21:31 Buspirone Hcl 5 Mg Tab PO 7.5 mg BID SASHA Administration Furosemide 20 mg 04/27/23 09:00 Furosemide 20 Mg Tab PO DAILY [facility] Piperacillin Sod/Tazobactam 100 mls @ 25 mls/hr 04/26/23 16:00 04/27/23 00:16 Sod 3.375 gm/ Sodium Chloride IVPB 25 mls/hr Q8HR SASHA Administration Protocol Sodium Chloride 1,000 mls @ 75 mls/hr 04/26/23 20:15 04/26/23 21:32 Saline 0.9% IV 75 mls/hr .[id number] SASHA Administration Losartan Potassium 50 mg 04/27/23 09:00 Losartan 50 Mg Tab PO DAILY SASHA Morphine Sulfate 4 mg 04/26/23 13:57 04/27/23 01:18 Morphine Sulfate 4 Mg/Ml Syringe IV 4 mg Q4HR PRN Administration Severe Pain (Scale 7 to 10) Naloxone HCl 0.2 mg 04/26/23 13:57 Naloxone 0.4 Mg/Ml 1 Ml Vial IV Q2M PRN Opioid Reversal Ondansetron HCl 4 mg 04/26/23 13:57 04/27/23 01:18 Ondansetron 4 Mg/2 Ml Vial IVP 4 mg Q8HR PRN Administration Nausea And Vomiting Pantoprazole Sodium 40 mg 04/27/23 09:00 Pantoprazole 40 Mg Tablet PO DAILY [facility] Simethicone 160 mg 04/27/23 02:00 04/27/23 02:02 Simethicone 80 Mg Chewable PO 160 mg Q6HR PRN Administration GI Upset Intake and Output 04/26/23 04/27/23 04/27/23 22:59 06:59 14:59 Intake Total 300 Balance 300 Intake: Oral 300 Other: # Voids 2 Weight 86.183 kg 04/26/23 11:49 04/26/23 11:49
[2023-04-27 09:18] LABS: Blood Urea Nitrogen 16.8 mg/dL (9.0-27.0); Carbon Dioxide 21.5 mmol/L (21.6-31.8); Chloride 112 mmol/L (96-109); Glucose 121 mg/dL (70-110); Potassium 4.2 mmol/L (3.5-5.5); Sodium 143 mmol/L (135-145)
[2023-04-27] MEDS ORDERED: INDOCYANINE GREEN 25 MG VIAL IV STA (09:25)
[2023-04-27] MEDS: BRIMONIDINE TARTRATE 0.2% DROPS 5 ML BTL RIGHT EYE SCH ×3 (09:51→20:14)
[2023-04-27] MEDS ORDERED: IV FLUID CONTINUATION 100 ML IV ONE ×2 (10:20)
[2023-04-27] MEDS ORDERED: LACTATED RINGERS 1,000 ML IV ONE (10:21)
[2023-04-27] MEDS ORDERED: ONDANSETRON 4 MG/2 ML VIAL IVP ONE (10:51)
[2023-04-27] MEDS ORDERED: DEXAMETHASONE SOD PHOSPHATE 4 MG/ML 1 ML VIAL IVP ONE (10:54)
[2023-04-27] MEDS: FUROSEMIDE 20 MG TAB PO SCH (11:27)
[2023-04-27] MEDS ORDERED: ePHEDrine 50 MG/ML 1 ML VIAL ONE (11:32)
[2023-04-27] MEDS ORDERED: fentaNYL (PF) 50 MCG/ML 2 ML AMP ONE (11:32)
[2023-04-27] MEDS ORDERED: ROCURONIUM 10 MG/ML (5 ML VIAL) IV ONE (11:32)
[2023-04-27] MEDS ORDERED: MIDAZOLAM 2 MG/2 ML VIAL ONE (11:32)
[2023-04-27] MEDS ORDERED: LIDOCAINE 2% INJ 20 MG/ML (2 ML VIAL) ONE (11:32)
[2023-04-27] MEDS ORDERED: PROPOFOL 10 MG/ML 20 ML VIAL IV ONE (11:32)
[2023-04-27] MEDS ORDERED: SUCCINYLCHOLINE CHLORIDE 200 MG/10 ML VIAL IV ONE (11:32)
[2023-04-27] MEDS ORDERED: NEOSTIGMINE 1 MG/ML 10 ML VIAL ONE (11:32)
[2023-04-27] MEDS ORDERED: GLYCOPYRROLATE 0.2 MG/ML 2 ML VIAL ONE (11:32)
[2023-04-27] MEDS: allopurinoL 300 MG TAB PO SCH (11:55)
[2023-04-27] MEDS ORDERED: LIDOCAINE 1%-EPI 1:100,000 50 ML VIAL SQ ONE (12:00)
[2023-04-27] MEDS: SODIUM CHLORIDE 0.9% 1,000 ML IV SCH ×2 (14:45→20:13)
[2023-04-27] MEDS: LOSARTAN 50 MG TAB PO SCH (14:45)
--- NOTE | 2023-04-27 16:35 | P.PN ---
Subjective Progress Note Date: 04/27/23 - Reason for Consult Consult date: 04/26/23 Medical management - Chief Complaint Abdominal pain - History of Present Illness Patient is a 77-year-old female with a known history of hypertension, osteoarthritis, history of endometrial cancer, depression presents to ER with complaints of abdominal pain mainly in the right upper quadrant and radiating to the back. With also complaining of left shoulder pain. Patient has been having symptoms since 9 PM last night. She did have episodes of diarrhea with loose stools as well. Denies any complaints of fever or chills. Patient felt nauseous. No episodes of vomiting. No complaints of chest tightness/pain. No shortness of breath. Patient states that she ate popcorn yesterday. Denied lower abdominal pain. No recent illnesses or sick contacts. Ultrasound gallbladder showed hepatomegaly, cholelithiasis and some wall thickening is present. Consider acute cholecystitis. EKG showed sinus bradycardia. Laboratory data showed WBC 15.0 hemoglobin 14.1 and platelets 231 Sodium 139 potassium 4.8 chloride 107 bicarb is 22 BUN 28 and creatinine 0.62 and blood sugar is 120. Urinalysis showed cloudy with trace protein. No WBCs. 04/27/2023 Patient is seen and evaluated in follow-up today currently nothing by mouth as patient is scheduled to undergo cholecystectomy with Dr. Beach today. Patient was evaluated by cardiology and has been cleared with no absolute contraindications to surgery. Patient is afebrile with no reported chest pain or shortness of breath. Patient currently nothing by mouth and will resume diet per surgery recommendations after surgery. Will await surgical report. Review of systems: Constitutional: No reports of fatigue, fever, or chills Cardiovascular: No reports of chest pain or palpitations Respiratory: No reports of shortness of breath or cough GI: No reports of nausea, vomiting, or diarrhea : No reports of dysuria or retention Neurovascular: No reports of weakness or numbness All medications have been reviewed PHYSICAL EXAMINATION: Patient is lying in the bed comfortably, no acute distress, awake alert and oriented.. HEENT: Normocephalic. Neck is supple. Pupils reactive. Nostrils clear. Oral cavity is moist. Neck reveals no JVD, carotid bruits, or thyromegaly. CHEST EXAMINATION: Trachea is central. Symmetrical expansion. Lung chinchilla clear to auscultation and percussion. CARDIAC: Normal S1, S2 with no gallops. No murmurs ABDOMEN: Soft. Bowel sounds present. Mild right upper quadrant tenderness. No guarding or rigidity.. No organomegaly. No abdominal bruits. Extremities: reveal no edema. No clubbing or cyanosis Neurologically awake, alert, oriented x3 with well-coordinated movements. No focal deficits noted Skin: No rash or skin lesions. Psychiatric: Cooperative. Non-suicidal, Musculoskeletal: No joint swelling or deformity. Normal range of motion. Assessment: Right upper quadrant pain likely due to acute cholecystitis. Cholelithiasis and gallbladder wall thickening as noted on the ultrasound. Left shoulder pain possible referred pain from diaphragm. Ruled out ACS. Sinus bradycardia Hypertension History of hiatal hernia Anxiety Obesity with BMI of 37.1 GI prophylaxis DVT prophylaxis Full code Plan: Patient will be continued on IV hydration and antibiotics in the form of Zosyn. Cardiology has been consulted and evaluated the patient. Patient underwent 2-D echo which showed an EF of 55-60 with mild tricuspid regurgitation and mild mitral regurgitation noted. Troponin was negative ACS ruled out. No absolute contraindications to surgical intervention with general surgery and patient is medically stable and willing to proceed with surgical intervention. Blood pressures are elevated and will monitor and adjust medications. Monitor for any postoperative hypotension. Recommend repeat labs Diet to be advanced per surgery recommendations as patient is currently nothing by mouth for the procedure We will continue to follow with general surgery during hospitalization. Thank you kindly for this consultation. The impression and plan of care has been dictated by Kyara Chilel, Nurse Practitioner as directed. Dr. Cachorro MD I have performed a history and examination and MDM of this patient, discussed the same with the dictator, and agree with the dictator's assessment and plan as written ,documented as a scribe. Based on total visit time, I have performed more than 50% of the visit. Objective - Vital Signs Vital signs: Vital Signs Temp 98.2 F 04/27/23 07:49 Pulse 66 04/27/23 07:49 Resp 18 04/27/23 07:49 BP 129/73 04/27/23 07:49 Pulse Ox 95 04/27/23 07:49 FiO2 Intake & Output 04/26/23 04/27/23 04/27/23 18:59 06:59 18:59 Intake Total 300 Balance 300 Weight 86.183 kg Intake: Oral 300 Other: # Voids 2 1 - Labs CBC & Chem 7: 04/27/23 05:49 04/27/23 05:49 Labs: Abnormal Lab Results - Last 24 Hours (Table) 04/26/23 04/26/23 04/26/23 Range/Units 11:49 11:49 13:54 WBC 15.0 H (3.8-10.6) k/uL RBC (4.10-5.20) X 10*6/uL MCV (80.0-97.0) FL MCHC (32.0-37.0) d/dL RDW (11.5-14.5) % Neutrophils # 12.6 H (1.3-7.7) k/uL Monocytes # (0.20-1.00) X 10*3/uL Eosinophils # (0.04-0.35) X 10*3/uL Chloride (96-109) mmol/L Carbon Dioxide (21.6-31.8) mmol/L BUN 28 H (7-17) mg/dL BUN/Creatinine Ratio (12.00-20.00) Ratio Glucose 120 H (74-99) mg/dL Urine Appearance Cloudy H (Clear) Urine Protein Trace H (Negative) Amorphous Sediment Rare H (None) /hpf Urine Mucus Rare H (None) /hpf Urine Yeast (Budding) Rare H (None) /hpf 04/27/23 04/27/23 Range/Units 05:49 05:49 WBC 15.40 H (3.8-10.6) k/uL RBC 3.89 L (4.10-5.20) X 10*6/uL MCV 97.9 H (80.0-97.0) FL MCHC 31.5 L (32.0-37.0) d/dL RDW 14.8 H (11.5-14.5) % Neutrophils # 13.07 H (1.3-7.7) k/uL Monocytes # 1.27 H (0.20-1.00) X 10*3/uL Eosinophils # 0 L (0.04-0.35) X 10*3/uL Chloride 112 H (96-109) mmol/L Carbon Dioxide 21.5 L (21.6-31.8) mmol/L BUN (7-17) mg/dL BUN/Creatinine Ratio 21.00 H (12.00-20.00) Ratio Glucose 121 H (74-99) mg/dL Urine Appearance (Clear) Urine Protein (Negative) Amorphous Sediment (None) /hpf Urine Mucus (None) /hpf Urine Yeast (Budding) (None) /hpf
[2023-04-27 17:06] VITALS: RESP 18
--- NOTE | 2023-04-27 18:38 | P.OP ---
Date of Procedure: 04/27/23 Description of Procedure: SURGEON: MARIELA ESTES MD PREOPERATIVE DIAGNOSES: 1. Acute cholecystitis 2. Symptomatic gallstones 3. Morbid obesity due to excess calories, BMI 37.1 4. Hypertensive heart disease 5. Gout 6. Depressive disorder 7. Gastroesophageal reflux disease 8. History of endometrial cancer 9. Abnormal EKG POSTOPERATIVE DIAGNOSES: 1. Acute cholecystitis with cystic duct obstruction due to gallstones 2. Hydrops cholecystitis 3. Morbid obesity due to excess calories, BMI 37.1 4. Hypertensive heart disease 5. Gout 6. Depressive disorder 7. Gastroesophageal reflux disease 8. History of endometrial cancer 9. Abnormal EKG 10. Peritoneal adhesions OPERATION: 1. Robotic-assisted [place] Xi laparoscopic lysis of adhesions over 50% of the case 2. Robotic-assisted [place] laparoscopic cholecystectomy, multiport with FIREFLY ESTIMATED BLOOD LOSS: 20 mL. SPECIMENS REMOVED: Gallbladder. COMPLICATIONS: None. OPERATIVE FINDINGS: 1. Acute cholecystitis with hydrops and distended gallbladder 2. Indocyanine green drain confirms acute cholecystitis with lack of contrast in gallbladder 3. Common bile duct within normal limits, without dilation INDICATIONS: The patient is a 77 year-old female who presents with epigastric right upper quadrant pain, symptomatic gallstones, WBC over 15,000 and clinical features of acute cholecystitis. Antibiotic management including pain management was prescribed to manage her cholecystitis. Surgical intervention with cholecystectomy was described. Robotic assisted laparoscopic approach was described. Benefits and risks of the procedure including but not limited to bleeding, infection, injury to the biliary tree was reviewed. Informed consent was obtained. DESCRIPTION OF PROCEDURE: Patient was brought to the operating room, placed in supine position. After general induction, the abdomen had been prepped and draped in standard sterile fashion. The robotic [place] XI system was primed. After a timeout protocol was performed, the patient had been prepped and draped in standard sterile fashion. The patient was injected with indocyanine green. A 5 mm 0 degrees laparoscopic trocar entry was performed along the left upper quadrant. The abdomen insufflated to 15 mmHg pressure which was tolerated well. Diagnostic laparoscopy demonstrated no injury to bowel viscera or mesentery. The liver surface was unremarkable. A moderately distended gallbladder was encased in surrounding soft tissues adding complexity to the case. Next, two 8 mm robotic ports were placed along the right upper abdomen. The camera 8-mm port was maintained along the epigastrium. Another 8 mm port was placed along the left upper abdominal wall after exchanging the 5 mm port. Please note that the ports were placed at least 10 to 15 cm away from the target anatomy of the gallbladder. The robot was docked along the left lateral abdomen. The patient was repositioned in reverse Trendelenburg position with the right side up. Using a grasper for arm 3, a grasper for arm 4, including hook cautery for arm 1, the robotic system was docked and primed as described. Instruments were interchanged by the assistant refinery operator including hook cautery, Bovie cautery and clip appliers. I had sat at the console. Severe omental adhesions including at the right upper quadrant was identified encased about the gallbladder. Extensive lysis of adhesions using hook artery with Bovie over 45 minutes was used to release the gallbladder from the surrounding tissues, over 50% of the case. The gallbladder was reflected towards the dome of the liver. The gallbladder was moderately distended adding complexity to the case. Moderate edema was found along the cystic triangle including infundibulum. Initial dissection was performed on the gallbladder infundibulum using indocyanine green to illuminate the cystic duct and common bile duct. Using a sponge, the liver was reflected towards the diaphragm and starting at the gallbladder fundus, hook cautery was used to find the avascular plane between the liver and the gallbladder. As the gallbladder was dissected from the hepatic fossa, hemostasis was checked along the posterior gallbladder. Next, indocyanine green was used to confirm the common bile duct as well as cystic duct. The cystic duct was short and dissection was performed at the junction of the cystic duct and infundibulum. The entire gallbladder was without contrast consistent with acute cholecystitis. The infundibulum was retracted laterally to expose the cystic duct away from the common bile duct. The cystic duct was dissected free from its surrounding tissue. FIREFLY was used to identify the cystic structures. A critical view of safety was obtained. Large PLASTIC clips were used throughout the entire case. Using a clip client server programmer, three clips were placed at the junction of the infundibulum and cystic duct. The cystic duct was divided using hook cautery. Next, the cystic artery was divided using hook cautery after 2 clips were applied. Electro-Bovie cautery and vessel sealer was used to remove the gallbladder with decompression. Hemostasis was checked and found to be adequate. Sponges were used to remove ascites in the abdomen. The robot was undocked. I re-scrubbed into the case. A 10 mm Endo Catch bag was used to remove the gallbladder in total via the left upper quadrant incision after widening the incision. The specimen was removed from the abdominal cavity. All pneumoperitoneum instruments were evacuated from the abdominal cavity. The incisions were cleansed using dilute hydrogen peroxide. The incisions were reapproximated using 4-0 Monocryl in an interrupted subcuticular fashion. Please note along the trocar sites, local anesthetic was placed as a field block prior to insertion of all instruments. Liquid glue was applied to the skin. At the end of the procedure needle, sponge, and instrument count had been verified correct by the surgical garment assembly supervisor. The patient was transferred to postanesthesia care unit in stable condition. Intraoperative films were shared with the patient's family who were pleased with the level of care.
[2023-04-27] MEDS ORDERED: HYDROmorphone 1 MG/ML 1 ML SYRINGE IVP PRN (18:39)
[2023-04-27] MEDS: HEPARIN SODIUM,PORCINE 5,000 UNIT/ML 1 ML VIAL SQ SCH (20:08)
[2023-04-27] MEDS: SIMETHICONE 80 MG CHEWABLE PO SCH (20:09)
[2023-04-27] MEDS: KETOROLAC 15 MG/ML 1 ML VIAL IVP SCH (20:10)
[2023-04-27] MEDS: ACETAMINOPHEN TAB 325 MG TAB PO SCH (20:11)
[2023-04-28] MEDS: PIPERACILLIN-TAZOBACTAM 3.375 GM in SODIUM CHLORIDE 0.9% 100 ML IVPB SCH ×3 (00:54→16:02)
[2023-04-28] MEDS: SIMETHICONE 80 MG CHEWABLE PO SCH ×2 (00:54→10:47)
[2023-04-28] MEDS: ACETAMINOPHEN TAB 325 MG TAB PO SCH ×3 (01:31→12:11)
[2023-04-28] MEDS: KETOROLAC 15 MG/ML 1 ML VIAL IVP SCH ×3 (01:31→12:12)
[2023-04-28] MEDS: SODIUM CHLORIDE 0.9% 1,000 ML IV SCH ×2 (04:57→12:13)
[2023-04-28] MEDS: ONDANSETRON 4 MG/2 ML VIAL IVP PRN (05:57)
[2023-04-28 08:51] LABS: Basophils # (A) 0.03 X 10*3/uL (0.00-0.10); Basophils % (A) 0.3 %; Eosinophils # (A) 0.01 X 10*3/uL (0.04-0.35); Eosinophils % (A) 0.1 %; HCT 34.4 % (37.2-46.3); HGB 11.2 d/dL (12.0-15.0); Lymphocytes # (A) 1.99 X 10*3/uL (0.90-5.00); Lymphocytes % (A) 18.6 %; MCH 31.3 pg (27.0-32.0); MCHC 32.6 d/dL (32.0-37.0); MCV 96.1 FL (80.0-97.0); Mean Platelet Volume 10.7 FL (9.5-12.2); Monocytes # (A) 0.76 X 10*3/uL (0.20-1.00); Monocytes % (A) 7.1 %; NRBC Per 100 WBC 0 X 10*3/uL (0.00-0.01); Neutrophils # (A) 7.86 X 10*3/uL (1.80-7.70); Neutrophils % (A) 73.5 %; Platelet Count 195 X 10*3/uL (140-440); RBC 3.58 X 10*6/uL (4.10-5.20); RDW 14.9 % (11.5-14.5); WBC 10.69 X 10*3/uL (4.50-10.00)
[2023-04-28 08:52] LABS: ALT 281 U/L (8-44); AST 154 U/L (13-35); Albumin 3.4 d/dL (3.8-4.9); Albumin/Globulin Ratio 2.43 Ratio (1.60-3.17); Alkaline Phosphatase 123 U/L (41-126); Blood Urea Nitrogen 18.4 mg/dL (9.0-27.0); Calcium 8.3 mg/dL (8.7-10.3); Carbon Dioxide 22.6 mmol/L (21.6-31.8); Chloride 110 mmol/L (96-109); Globulin 1.4 d/dL (1.6-3.3); Glucose 107 mg/dL (70-110); Potassium 4.2 mmol/L (3.5-5.5); Sodium 141 mmol/L (135-145); Total Bilirubin 0.5 mg/dL (0.3-1.2); Total Protein 4.8 d/dL (6.2-8.2)
[2023-04-28] MEDS: FUROSEMIDE 20 MG TAB PO SCH (10:47)
[2023-04-28] MEDS: busPIRone HCl 5 MG TAB PO SCH (10:48)
[2023-04-28] MEDS: BRIMONIDINE TARTRATE 0.2% DROPS 5 ML BTL RIGHT EYE SCH ×2 (10:59→16:03)
[2023-04-28] MEDS: HEPARIN SODIUM,PORCINE 5,000 UNIT/ML 1 ML VIAL SQ SCH (11:00)
[2023-04-28] MEDS: LOSARTAN 50 MG TAB PO SCH (11:01)
[2023-04-28] MEDS: allopurinoL 300 MG TAB PO SCH (11:04)
--- NOTE | 2023-04-28 11:07 | P.PN ---
Subjective HISTORY OF PRESENT ILLNESS: This is a 77-year-old female with a past medical history significant for hypertension. Patient follows with a Dr. Granados in [facility]. We have been asked to see the patient in consultation for cardiac clearance. Patient examined at the bedside. Patient presented to the hospital with a chief complaint of abdominal pain. Patient was found to have acute cholecystitis and is scheduled to undergo surgical intervention today with Dr. Beach. Patient denies any chest pain or pressure. She denies any shortness of breath. She states that she is generally fairly and active. She states if she were to walk a mile she would get pretty short of breath. She is a nonsmoker. She denies any previous history of coronary artery disease. She states that she saw her chrome plater helper in June of last year. She underwent Lexiscan stress test at that time which was negative for ischemia. * EKG reveals sinus bradycardia with no signs of acute ischemia. Left anterior fascicular block. * Laboratory data: W BC 15.4. Hemoglobin 12.0. Platelet count 221. Sodium 139. Potassium 4.8. BUN 28. Creatinine 0.62. Lactic acid 1.3. Troponin negative 1. * Current home cardiac medications include losartan 50 mg daily and Lasix 20 mg daily * Echocardiogram obtained this admission reveals an ejection fraction 55-60%, mild TR, mild PI, mild MR 04/28/2023 Patient is status post robotic-assisted laparoscopic cholecystectomy and lysis of adhesions. Postop day #1. Patient examined this morning at the bedside. Patient denies chest pain or pressure. She denies shortness of breath. Vital signs are stable. PHYSICAL EXAM: VITAL SIGNS: Reviewed. GENERAL: Well-developed in no acute distress. HEENT: Head is normocephalic. Pupils are equal, round. Sclerae anicteric. Mucous membranes of the mouth are moist. Neck supple. No JVD or thyromegaly LUNGS: Respirations even and unlabored. Lungs essentially clear to auscultation bilaterally. HEART: Regular rate and rhythm. S1 and S2 heard. Systolic murmur noted ABDOMEN: Soft. Nondistended. Nontender. EXTREMITIES: Normal range of motion. No clubbing or cyanosis. Peripheral pulses intact. No lower extremity edema NEUROLOGIC: Awake and alert. Oriented x 3. ASSESSMENT: Abdominal pain Leukocytosis Acute cholecystitis Hypertension Morbid obesity: BMI 37.1 History of hiatal hernia PLAN: Continue current cardiac medications Patient is currently stable from a cardiac standpoint with no further inpatient recommendations Patient to follow-up post discharge with her chrome plater helper in [facility], Dr. Granados We will sign off. Please reconsult if needed. Nurse practitioner note has been reviewed by physician. Signing provider agrees with the documented findings, assessment, and plan of care. Objective - Vital Signs Vital signs: Vital Signs Temp 98.0 F 04/28/23 07:46 Pulse 60 04/28/23 07:46 Resp 18 04/28/23 07:46 BP 128/60 04/28/23 07:46 Pulse Ox 95 04/28/23 07:46 FiO2 Intake & Output 04/27/23 04/28/23 04/28/23 18:59 06:59 18:59 Intake Total 1500 Output Total 20 Balance 1480 Intake: IV 1500 Output: Estimated Blood Loss 20 Other: # Voids 1 2 # Bowel Movements 0 - Labs CBC & Chem 7: 04/28/23 05:07 04/28/23 05:07 Labs: Abnormal Lab Results - Last 24 Hours (Table) 04/28/23 04/28/23 Range/Units 05:07 05:07 WBC 10.69 H (4.50-10.00) X 10*3/uL RBC 3.58 L (4.10-5.20) X 10*6/uL Hgb 11.2 L (12.0-15.0) d/dL Hct 34.4 L (37.2-46.3) % RDW 14.9 H (11.5-14.5) % Neutrophils # 7.86 H (1.80-7.70) X 10*3/uL Eosinophils # 0.01 L (0.04-0.35) X 10*3/uL Chloride 110 H (96-109) mmol/L Est GFR (CKD-EPI) 58 L (>=60) Calcium 8.3 L (8.7-10.3) mg/dL AST 154 H (13-35) U/L ALT 281 H (8-44) U/L Total Protein 4.8 L (6.2-8.2) d/dL Albumin 3.4 L (3.8-4.9) d/dL Globulin 1.4 L (1.6-3.3) d/dL
--- NOTE | 2023-04-28 13:31 | P.DS ---
Providers Date of admission: 04/26/23 13:59 Expected date of discharge: 04/28/23 Attending physician: Autumn Beach Consults: 04/26/23 14:00 Consult Physician Routine Consulting Provider: Logan Ivory Consult Reason/Comments: medical management Do you want consulting provider notified?: Already Contacted Primary care physician: Mellisa Basurto Hospital Course: Discharge diagnosis 1. Acute cholecystitis with cystic duct obstruction due to gallstones 2. Hydrops cholecystitis 3. Morbid obesity due to excess calories, BMI 37.1 4. Hypertensive heart disease 5. Gout 6. Depressive disorder 7. Gastroesophageal reflux disease 8. History of endometrial cancer 9. Abnormal EKG 10. Peritoneal adhesions Hospital course The patient is a 77 year-old female who presents with epigastric right upper quadrant pain, symptomatic gallstones, WBC over 15,000 and clinical features of acute cholecystitis. Patient is status post robotic-assisted lysis of adhesions and robotic cholecystectomy. Patient tolerated surgery well. Her pain is controlled. She is tolerating diet. She has been up and ambulating. She is afebrile. She is stable for discharge. Physician Share Dairy Farmer note has been reviewed by physician. Signing provider agrees with the documented findings, assessment, and plan of care. Patient Condition at Discharge: Stable Plan - Discharge Summary Discharge Rx Participant: No New Discharge Prescriptions: New Ibuprofen [Motrin] 600 mg PO Q8HR PRN #30 tab PRN Reason: Pain Continue Acetaminophen-Codeine 300-30mg [Tylenol w/codeine #3] 1 tab PO Q4-6H PRN PRN Reason: Pain Ascorbic Acid [Vitamin C] 1,000 mg PO DAILY Bacillus Coagulans [Digestive Advantage Probiotic Chew] 1 tab PO DAILY Brimonidine Tartrate [Alphagan P 0.2% Ophth Soln] 1 drop RIGHT EYE TID busPIRone HCL [Buspar] 7.5 mg PO BID Fish Oil/Dha/Epa [Fish Oil 1,200 mg Fish Oil] 1 cap PO DAILY Losartan Potassium 50 mg PO DAILY Omeprazole 40 mg PO DAILY Vit C/E/Zn/Coppr/Lutein/Zeaxan [Preservision Areds 2 Softgel] 1 cap PO DAILY allopurinoL [Zyloprim] 300 mg PO DAILY Cholecalciferol [Vitamin D3 (25 Mcg = 1000 Iu)] 50 mcg PO DAILY Cyanocobalamin (Vitamin B-12) [Vitamin B-12] 1,000 mcg PO DAILY Elderberry Fruit and Flower [Black Elderberry 575 mg Cap] 1 cap PO DAILY Furosemide [Lasix] 20 mg PO DAILY Multivitamins, Thera [Multivitamin (formulary)] 1 tab PO DAILY Ubidecarenone [Coenzyme Q10] 100 mg PO DAILY No Action Turmeric Root Extract [Turmeric] 500 mg PO DAILY Discharge Medication List Acetaminophen-Codeine 300-30mg [Tylenol w/codeine #3] 1 tab PO Q4-6H PRN 04/26/23 [History] Ascorbic Acid [Vitamin C] 1,000 mg PO DAILY 04/26/23 [History] Bacillus Coagulans [Digestive Advantage Probiotic Chew] 1 tab PO DAILY 04/26/23 [History] Brimonidine Tartrate [Alphagan P 0.2% Ophth Soln] 1 drop RIGHT EYE TID 04/26/23 [History] Cholecalciferol [Vitamin D3 (25 Mcg = 1000 Iu)] 50 mcg PO DAILY 04/26/23 [History] Cyanocobalamin (Vitamin B-12) [Vitamin B-12] 1,000 mcg PO DAILY 04/26/23 [History] Elderberry Fruit and Flower [Black Elderberry 575 mg Cap] 1 cap PO DAILY 04/26/23 [History] Fish Oil/Dha/Epa [Fish Oil 1,200 mg Fish Oil] 1 cap PO DAILY 04/26/23 [History] Furosemide [Lasix] 20 mg PO DAILY 04/26/23 [History] Losartan Potassium 50 mg PO DAILY 04/26/23 [History] Multivitamins, Thera [Multivitamin (formulary)] 1 tab PO DAILY 04/26/23 [History] Omeprazole 40 mg PO DAILY 04/26/23 [History] Turmeric Root Extract [Turmeric] 500 mg PO DAILY 04/26/23 [History] Ubidecarenone [Coenzyme Q10] 100 mg PO DAILY 04/26/23 [History] Vit C/E/Zn/Coppr/Lutein/Zeaxan [Preservision Areds 2 Softgel] 1 cap PO DAILY 04/26/23 [History] allopurinoL [Zyloprim] 300 mg PO DAILY 04/26/23 [History] busPIRone HCL [Buspar] 7.5 mg PO BID 04/26/23 [History] Ibuprofen [Motrin] 600 mg PO Q8HR PRN #30 tab 04/28/23 [Rx] Follow up Appointment(s)/Referral(s): Makenzie Jeffrey MD [STAFF PHYSICIAN] - 3 Weeks Mellisa Basurto MD [Primary Care Provider] - 1-2 days Autumn Beach MD [STAFF PHYSICIAN] - 05/02/23 Activity/Diet/Wound Care/Special Instructions: No lifting over 4 pounds in 4 weeks you may shower. No bath tub soaks for two weeks Use Tylenol and ibuprofen scheduled for the next 24-48 hours for best pain relief. Use ice along incisions for the today to prevent swelling. Hold on taking Tumeric until seen by surgeon Patient will have Telehealth visit on Monday05/02/[address] Beach Continue low fat diet Discharge Disposition: HOME SELF-CARE
[2023-04-28 15:26] VITALS: BP 136/76; PULSE 70
[2023-04-28 15:32] VITALS: TEMP 97.8
--- NOTE | 2023-04-29 06:02 | P.PN ---
Subjective Progress Note Date: 04/28/23 - Reason for Consult Consult date: 04/26/23 Medical management - Chief Complaint Abdominal pain - History of Present Illness Patient is a 77-year-old female with a known history of hypertension, osteoarthritis, history of endometrial cancer, depression presents to ER with complaints of abdominal pain mainly in the right upper quadrant and radiating to the back. With also complaining of left shoulder pain. Patient has been having symptoms since 9 PM last night. She did have episodes of diarrhea with loose stools as well. Denies any complaints of fever or chills. Patient felt nauseous. No episodes of vomiting. No complaints of chest tightness/pain. No shortness of breath. Patient states that she ate popcorn yesterday. Denied lower abdominal pain. No recent illnesses or sick contacts. Ultrasound gallbladder showed hepatomegaly, cholelithiasis and some wall thickening is present. Consider acute cholecystitis. EKG showed sinus bradycardia. Laboratory data showed WBC 15.0 hemoglobin 14.1 and platelets 231 Sodium 139 potassium 4.8 chloride 107 bicarb is 22 BUN 28 and creatinine 0.62 and blood sugar is 120. Urinalysis showed cloudy with trace protein. No WBCs. 04/27/2023 Patient is seen and evaluated in follow-up today currently nothing by mouth as patient is scheduled to undergo cholecystectomy with Dr. Beach today. Patient was evaluated by cardiology and has been cleared with no absolute contraindications to surgery. Patient is afebrile with no reported chest pain or shortness of breath. Patient currently nothing by mouth and will resume diet per surgery recommendations after surgery. Will await surgical report. 04/28/2023 Patient is seen in follow-up today reports has been up walking the halls frequently. Patient reports having some belching and did have gas yesterday but hasn't really noticed any today and has not had a bowel movement. Patient is voiding with no difficulties. Patient does have some abdominal discomfort. Patient also reports having a slight cough since the surgery, most likely from the intubation. Patient does have incentive spirometer at bedside and encourage the patient to continue using at least 10 times every hour while awake. Patient tolerating diet also not much of an appetite. Patient denies nausea or vomiting. Possibly going home today. Review of systems: Constitutional: No reports of fatigue, fever, or chills Cardiovascular: No reports of chest pain or palpitations Respiratory: No reports of shortness of breath , reports slight occasional cough since surgery GI: No reports of nausea, vomiting, or diarrhea : No reports of dysuria or retention Neurovascular: No reports of weakness or numbness All medications have been reviewed PHYSICAL EXAMINATION: Patient is lying in the bed comfortably, no acute distress, awake alert and oriented.. Obese HEENT: Normocephalic. Neck is supple. Pupils reactive. Nostrils clear. Oral cavity is moist. Neck reveals no JVD, carotid bruits, or thyromegaly. CHEST EXAMINATION: Trachea is central. Symmetrical expansion. Lung chinchilla clear to auscultation and percussion. CARDIAC: Normal S1, S2 with no gallops. No murmurs ABDOMEN: Soft. Bowel sounds present. Mild abdominal tenderness on palpation. No guarding or rigidity.. No organomegaly. No abdominal bruits. Extremities: reveal no edema. No clubbing or cyanosis Neurologically awake, alert, oriented x3 with well-coordinated movements. No focal deficits noted Skin: No rash or skin lesions. Psychiatric: Cooperative. Non-suicidal Musculoskeletal: No joint swelling or deformity. Normal range of motion. Assessment: Right upper quadrant pain likely due to acute cholecystitis. Cholelithiasis and gallbladder wall thickening as noted on the ultrasound. Status post cholecystectomy Left shoulder pain possible referred pain from diaphragm. Ruled out ACS. Improved Sinus bradycardia Hypertension History of hiatal hernia Anxiety Obesity with BMI of 37.1 GI prophylaxis DVT prophylaxis Full code Plan: Patient is continued on IV antibiotics in the form of Zosyn. Cardiology has evaluated the patient for surgery clearance. Patient underwent 2-D echo which showed an EF of 55-60 with mild tricuspid regurgitation and mild mitral regurgitation noted. Troponin was negative ACS ruled out. No absolute contraindications to surgical intervention and patient is status post cholecystectomy, postop day 1 Home medications reviewed and resumed Patient is on regular diet and tolerating. Patient reports not passing much gas but belching and has not had a bowel movement as of yet Encouraged increased activity as tolerated and patient has been walking frequently in the halls Patient reports she may be going home today. Patient medically stable for discharge today We will continue to follow with general surgery during hospitalization. Thank you kindly for this consultation. The impression and plan of care has been dictated by Kyara Chilel, Nurse Practitioner as directed. Dr. Cachorro MD I have performed a history and examination and MDM of this patient, discussed the same with the dictator, and agree with the dictator's assessment and plan as written ,documented as a scribe. Based on total visit time, I have performed more than 50% of the visit. Objective - Vital Signs Vital signs: Vital Signs Temp 98.0 F 04/28/23 07:46 Pulse 60 04/28/23 07:46 Resp 18 04/28/23 07:46 BP 128/60 04/28/23 07:46 Pulse Ox 95 04/28/23 07:46 FiO2 Intake & Output 04/27/23 04/28/23 04/28/23 18:59 06:59 18:59 Intake Total 1500 Output Total 20 Balance 1480 Intake: IV 1500 Output: Estimated Blood Loss 20 Other: # Voids 1 2 # Bowel Movements 0 - Labs CBC & Chem 7: 04/28/23 05:07 04/28/23 05:07 Labs: Abnormal Lab Results - Last 24 Hours (Table) 04/28/23 04/28/23 Range/Units 05:07 05:07 WBC 10.69 H (4.50-10.00) X 10*3/uL RBC 3.58 L (4.10-5.20) X 10*6/uL Hgb 11.2 L (12.0-15.0) d/dL Hct 34.4 L (37.2-46.3) % RDW 14.9 H (11.5-14.5) % Neutrophils # 7.86 H (1.80-7.70) X 10*3/uL Eosinophils # 0.01 L (0.04-0.35) X 10*3/uL Chloride 110 H (96-109) mmol/L Est GFR (CKD-EPI) 58 L (>=60) Calcium 8.3 L (8.7-10.3) mg/dL AST 154 H (13-35) U/L ALT 281 H (8-44) U/L Total Protein 4.8 L (6.2-8.2) d/dL Albumin 3.4 L (3.8-4.9) d/dL Globulin 1.4 L (1.6-3.3) d/dL
== END 2023-04-28 19:44 | disposition home or self-care (01) ==
LOC: EC 09:29 → 4SSUR 13:59 → INTOOBSV 13:59 → 5NMEDONC 14:14 → UNDODISIN 04-28 19:44
PROVIDERS: ADMIT Surgery Plastic and Reconstructive Surgery; ATTEND Surgery Plastic and Reconstructive Surgery
DX: K80.01 Calculus of gallbladder with acute cholecystitis with obstruction (principal); K82.1 Hydrops of gallbladder; K66.0 Peritoneal adhesions (postprocedural) (postinfection); D72.829 Elevated white blood cell count, unspecified; M25.512 Pain in left shoulder; R00.1 Bradycardia, unspecified; F41.9 Anxiety disorder, unspecified; I11.9 Hypertensive heart disease without heart failure; K21.9 Gastro-esophageal reflux disease without esophagitis; M10.9 Gout, unspecified; F32.A Depression, unspecified; E66.01 Morbid (severe) obesity due to excess calories; Z68.37 Body mass index [BMI] 37.0-37.9, adult; Z85.44 Personal history of malignant neoplasm of other female genital organs; Z87.19 Personal history of other diseases of the digestive system; Z79.899 Other long term (current) drug therapy
CPT/HCPCS: 96376 ×2; 96361 ×3; 96365; 96366 ×3; 96372 ×2; 96375 ×2; 99285; 36415; 93005; 93306; 88304; 80053 ×2; 80048; 84443; 83605; 83690; 84484; 85025 ×3; 81001; 76705; 47562; G0378 ×3; J2543 ×3; J2250; J0330; J2270; J1644 ×2; J1100; J2710; J2765; J2405 ×2; J3010; J1885 ×2; J2704; C9113; J2001; 96374

== ENCOUNTER 2023-06-28 08:33 | Day surgery (SDC) | payer MEDICARE ==
[2023-06-26 11:29] VITALS: BMI 36.5
[~2023-06-28 08:33] MED LIST: LACTATED RINGERS 1,000 ML IV SCH
--- NOTE | 2023-06-28 08:44 | P.GSHP ---
History of Present Illness H&P Date: 06/28/23 CHIEF COMPLAINT: Colon screen HISTORY OF PRESENT ILLNESS: The patient is a 77-year-old female who presents for colon screen. Lower endoscopy was offered for further evaluation and management. PAST MEDICAL HISTORY: Please see list. PAST SURGICAL HISTORY: Please see list. MEDICATIONS: Please see list. ALLERGIES: Please see list. SOCIAL HISTORY: No illicit drug use FAMILY HISTORY: No reports of Crohn disease or ulcerative colitis. REVIEW OF ORGAN SYSTEMS: CONSTITUTIONAL: No reports of fevers or chills. PHYSICAL EXAM: VITAL SIGNS: Stable GENERAL: Well-developed pleasant in no acute distress. HEENT: No scleral icterus. Extraocular movements grossly intact. Moist buccal mucosa. NECK: Supple without lymphadenopathy. CHEST: Unlabored respirations. Equal bilateral excursions. CARDIOVASCULAR: Regular rate and rhythm. Distal 2+ pulses. ABDOMEN: Soft, nontender, nondistended. MUSCULOSKELETAL: No clubbing, cyanosis, or edema. ASSESSMENT: 1. Colon screen. PLAN: 1. Recommend proceeding with a lower endoscopy Past Medical History Past Medical History: Cancer, Hypertension, Osteoarthritis (OA) Additional Past Medical History / Comment(s): endometrial cancer with hyst,hx precancerous polyp History of Any Multi-Drug Resistant Organisms: None Reported Past Surgical History: Hysterectomy, Tubal Ligation Additional Past Surgical History / Comment(s): cataract sx right eye,Robotic Cholecystectomy w/ lysis of adhesions Past Anesthesia/Blood Transfusion Reactions: No Reported Reaction Additional Past Anesthesia/Blood Transfusion Reaction / Comment(s): no hx blood transfusion Smoking Status: Never smoker - Past Family History Father Family Medical History: Coronary Artery Disease (CAD), Myocardial Infarction ([place]) Mother Family Medical History: Coronary Artery Disease (CAD) Medications and Allergies Home Medications Medication Instructions Recorded Confirmed Type Ascorbic Acid [Vitamin C] 1,000 mg PO DAILY 04/26/23 06/26/23 History Bacillus Coagulans [Digestive 1 tab PO DAILY 04/26/23 06/26/23 History Advantage Probiotic Chew] Brimonidine Tartrate [Alphagan P 1 drop RIGHT EYE TID 04/26/23 06/26/23 History 0.2% Ophth Soln] Cholecalciferol [Vitamin D3 (25 50 mcg PO DAILY 04/26/23 06/26/23 History Mcg = 1000 Iu)] Cyanocobalamin (Vitamin B-12) 1,000 mcg PO DAILY 04/26/23 06/26/23 History [Vitamin B-12] Elderberry Fruit and Flower [Black 1 cap PO DAILY 04/26/23 06/26/23 History Elderberry 575 mg Cap] Furosemide [Lasix] 20 mg PO DAILY 04/26/23 06/26/23 History Losartan Potassium 50 mg PO QAM 04/26/23 06/26/23 History Multivitamins, Thera [Multivitamin 1 tab PO DAILY 04/26/23 06/26/23 History (formulary)] Omeprazole 40 mg PO DAILY PRN 04/26/23 06/26/23 History Ubidecarenone [Coenzyme Q10] 100 mg PO DAILY 04/26/23 06/26/23 History Vit C/E/Zn/Coppr/Lutein/Zeaxan 1 cap PO DAILY 04/26/23 06/26/23 History [Preservision Areds 2 Softgel] allopurinoL [Zyloprim] 300 mg PO DAILY 04/26/23 06/26/23 History busPIRone HCL [Buspar] 7.5 mg PO BID 04/26/23 06/26/23 History Allergies Allergy/AdvReac Type Severity Reaction Status Date / Time niacin Allergy Unknown Verified 06/26/23 11:15 pantoprazole [From Protonix] Allergy Nausea Verified 06/26/23 11:15 tizanidine Allergy Unknown Verified 06/26/23 11:15
[2023-06-28] MEDS ORDERED: PROPOFOL 10 MG/ML 20 ML VIAL IV ONE (09:15)
[2023-06-28 09:18] VITALS: RESP 16; TEMP 98.2
--- NOTE | 2023-06-28 09:46 | P.PCN ---
Date of Procedure: 06/28/23 Description of Procedure: PREOPERATIVE DIAGNOSIS: Personal history of colon polyps Colonoscopy screening POSTOPERATIVE DIAGNOSIS: Tubular adenoma ascending colon Sigmoid diverticulosis Internal hemorrhoids, grade 4 External hemorrhoids, grade 4 OPERATION: Colonoscopy to the ileocecal valve and appendiceal orifice, cecum Colonoscopy with hot snare polypectomy SURGEON: Autumn Beach MD. ANESTHESIA: MAC. INDICATIONS: The patient is an 77-year-old female who presents for colonoscopy screening. Last colonoscopy over 5 years. Benefits and risks were described and informed consent was obtained. DESCRIPTION OF PROCEDURE: The patient had undergone Golytely prep. The patient had been brought into the operating room and laid in the left lateral decubitus position. After adequate intravenous sedation, the rectum was examined with 2% lidocaine jelly. External hemorrhoids were encountered. The rectal tone was within normal limits. No lesions were palpated in the rectal vault. An Olympus colonoscope was advanced until the cecum, ileocecal valve and appendiceal orifice were clearly viewed. The prep was good. Sigmoid diverticulosis was encountered. Colonic polyps were found and removed. No evidence of focal colitis was found. Retroflexion of the scope demonstrated grade 4 internal hemorrhoids without active bleeding or inflammation. The colon was desufflated. The patient had tolerated the procedure well. Withdrawal time was over 6 minutes. FINDINGS: Aronchick preparation quality scale 1+ (1-5) Internal hemorrhoids, grade 4 External hemorrhoids, grade 4. No arteriovenous malformations. Sigmoid diverticulosis, with severe redundancy of sigmoid colon requiring abdominal wall Removal of 1 polyps: - Snare polypectomy ascending colon 5 mm tubulovillous adenoma No focal colitis. RECOMMENDATIONS: Repeat colonoscopy in 3 years, 2025 Plan - Discharge Summary Discharge Rx Participant: No New Discharge Prescriptions: Continue Ascorbic Acid [Vitamin C] 1,000 mg PO DAILY Bacillus Coagulans [Digestive Advantage Probiotic Chew] 1 tab PO DAILY Brimonidine Tartrate [Alphagan P 0.2% Ophth Soln] 1 drop RIGHT EYE TID busPIRone HCL [Buspar] 7.5 mg PO BID Losartan Potassium 50 mg PO QAM Omeprazole 40 mg PO DAILY PRN PRN Reason: reflux Vit C/E/Zn/Coppr/Lutein/Zeaxan [Preservision Areds 2 Softgel] 1 cap PO DAILY allopurinoL [Zyloprim] 300 mg PO DAILY Cholecalciferol [Vitamin D3 (25 Mcg = 1000 Iu)] 50 mcg PO DAILY Cyanocobalamin (Vitamin B-12) [Vitamin B-12] 1,000 mcg PO DAILY Elderberry Fruit and Flower [Black Elderberry 575 mg Cap] 1 cap PO DAILY Furosemide [Lasix] 20 mg PO DAILY Multivitamins, Thera [Multivitamin (formulary)] 1 tab PO DAILY Ubidecarenone [Coenzyme Q10] 100 mg PO DAILY Discharge Medication List Ascorbic Acid [Vitamin C] 1,000 mg PO DAILY 04/26/23 [History] Bacillus Coagulans [Digestive Advantage Probiotic Chew] 1 tab PO DAILY 04/26/23 [History] Brimonidine Tartrate [Alphagan P 0.2% Ophth Soln] 1 drop RIGHT EYE TID 04/26/23 [History] Cholecalciferol [Vitamin D3 (25 Mcg = 1000 Iu)] 50 mcg PO DAILY 04/26/23 [History] Cyanocobalamin (Vitamin B-12) [Vitamin B-12] 1,000 mcg PO DAILY 04/26/23 [History] Elderberry Fruit and Flower [Black Elderberry 575 mg Cap] 1 cap PO DAILY 04/26/23 [History] Furosemide [Lasix] 20 mg PO DAILY 04/26/23 [History] Losartan Potassium 50 mg PO QAM 04/26/23 [History] Multivitamins, Thera [Multivitamin (formulary)] 1 tab PO DAILY 04/26/23 [History] Omeprazole 40 mg PO DAILY PRN 04/26/23 [History] Ubidecarenone [Coenzyme Q10] 100 mg PO DAILY 04/26/23 [History] Vit C/E/Zn/Coppr/Lutein/Zeaxan [Preservision Areds 2 Softgel] 1 cap PO DAILY 04/26/23 [History] allopurinoL [Zyloprim] 300 mg PO DAILY 04/26/23 [History] busPIRone HCL [Buspar] 7.5 mg PO BID 04/26/23 [History] Follow up Appointment(s)/Referral(s): Autumn Beach MD [STAFF PHYSICIAN] - As Needed Patient Instructions/Handouts: Colorectal Polyps (GEN), Diverticulosis Diet (GEN), Diverticulitis (IP) Activity/Diet/Wound Care/Special Instructions: Colonoscopy in 3 years, 2025 Discharge Disposition: HOME SELF-CARE
[2023-06-28 10:10] VITALS: BP 138/63; PULSE 50
== END 2023-06-28 10:31 | disposition home or self-care (01) ==
LOC: ORWHC2ENDO 08:33
PROVIDERS: ATTEND Surgery Plastic and Reconstructive Surgery
DX: Z12.11 Encounter for screening for malignant neoplasm of colon (principal); D12.2 Benign neoplasm of ascending colon; K57.30 Diverticulosis of large intestine without perforation or abscess without bleeding; K64.3 Fourth degree hemorrhoids; K64.4 Residual hemorrhoidal skin tags; I10 Essential (primary) hypertension; M19.90 Unspecified osteoarthritis, unspecified site; G47.33 Obstructive sleep apnea (adult) (pediatric); K21.9 Gastro-esophageal reflux disease without esophagitis; Z85.42 Personal history of malignant neoplasm of other parts of uterus; Z90.49 Acquired absence of other specified parts of digestive tract; Z98.51 Tubal ligation status; Z98.41 Cataract extraction status, right eye; Z82.49 Family history of ischemic heart disease and other diseases of the circulatory system; Z79.83 Long term (current) use of bisphosphonates; Z79.84 Long term (current) use of oral hypoglycemic drugs; Z88.3 Allergy status to other anti-infective agents; Z88.8 Allergy status to other drugs, medicaments and biological substances; Z85.9 Personal history of malignant neoplasm, unspecified; Z88.6 Allergy status to analgesic agent; Z86.010 Personal history of colon polyps
CPT/HCPCS: 88305; 45385; J2704

== ENCOUNTER → 2023-08-03 | Outpatient (CLI) | payer MEDICARE ==
--- NOTE | 2023-08-14 14:15 | MM ---
Reason for Exam: Screening (asymptomatic). Last mammogram was performed 1 year(s) and 1 month(s) ago. Patient History: Menarche at age 12. First Full-Term at age 21. Left ovary removed at age 58. Right ovary removed at age 58. Hysterectomy at age 58. Postmenopausal. Risk Values: Ivon 5 year model risk: 1.5%. NCI Lifetime model risk: 2.8%. Prior Study Comparison: 07/11/2022 Bilateral Screening Mammogram, [facility]. Tissue Density: There are scattered fibroglandular densities. Findings: Analyzed By CAD. There is no suspicious group of microcalcifications or new suspicious mass in either breast. Overall Assessment: Negative, BI-RAD 1 Management: Screening Mammogram of both breasts in 1 year. . Patient should continue monthly self-breast exams. A clinical breast exam by your physician is recommended on an annual basis. This exam should not preclude additional follow-up of suspicious palpable abnormalities. Note on Ivon scores and lifetime risk: 1. A Ivon score greater than 3% is considered moderate risk. If this is the case, consider specialist referral to assess eligibility for a risk reducing agent. 2. If overall lifetime risk for the development of breast cancer is 20% or higher, the patient may qualify for future screening with alternating mammogram and breast MRI. Electronically signed and approved by: Jamil Umanzor M.D. Radiologist
== END | disposition home or self-care (01) ==
LOC: RADMAMWWP 11:32
PROVIDERS: ATTEND Family Medicine
DX: Z12.31 Encounter for screening mammogram for malignant neoplasm of breast (principal); Z78.0 Asymptomatic menopausal state
CPT/HCPCS: 77063; 77067

== ENCOUNTER → 2024-07-01 | Outpatient (CLI) | payer MEDICARE ==
[2024-07-01 17:06] LABS: INR 0.9 (<1.2); Partial Thromboplastin Time 25.4 sec (22.0-30.0); Prothrombin Time 10.5 sec (10.0-12.5)
== END | disposition home or self-care (01) ==
LOC: LABPAT 15:48
PROVIDERS: ATTEND Orthopaedic Surgery
DX: Z01.812 Encounter for preprocedural laboratory examination (principal); Z22.322 Carrier or suspected carrier of Methicillin resistant Staphylococcus aureus
CPT/HCPCS: 85610; 85730; 86850; 86900; 86901; 87070

== ENCOUNTER 2024-07-09 07:17 | Day surgery (SDC) | payer MEDICARE ==
[~2024-07-09 07:17] MED LIST changes: -LACTATED RINGERS 1,000 ML IV SCH; +LIDOCAINE 1% (10MG/ML) FOR IV START INTRADERMA PRN; +TRANEXAMIC 1,000 MG/100ML-NACL 1,000 MG in SALINE 1 100ML.BAG IVPB PRN
[2024-07-09] MEDS: ACETAMINOPHEN TAB 500 MG TAB PO PRN (08:00)
[2024-07-09] MEDS: MELOXICAM 7.5 MG TAB PO PRN (08:00)
[2024-07-09] MEDS: GABAPENTIN 300 MG CAP PO PRN (08:00)
[2024-07-09] MEDS: LACTATED RINGERS 1,000 ML IV SCH (08:21)
[2024-07-09] MEDS: DEXAMETHASONE SOD PHOSPHATE 4 MG/ML 1 ML VIAL IV ONE (08:21)
[2024-07-09] MEDS: ONDANSETRON 4 MG/2 ML VIAL IVP ONE (08:21)
[2024-07-09] MEDS: IV FLUID CONTINUATION 1,000 ML IV ONE (08:26)
[2024-07-09] MEDS: MIDAZOLAM 2 MG/2 ML VIAL IV PRN (08:40)
[2024-07-09] MEDS: fentaNYL (PF) 50 MCG/ML 2 ML AMP IVP PRN (08:42)
[2024-07-09] MEDS: ceFAZolin 1,000 MG in SODIUM CHLORIDE 0.9% 1,000 ML IRRIGATION ONE (09:40)
--- NOTE | 2024-07-09 09:45 | P.ANPRN ---
Procedure Note - Anesthesia - Nerve Block Performed Right Adductor Canal Infusion Time Out Performed: Yes Date of Procedure: 07/09/24 Procedure Start Time: 08:39 Procedure Stop Time: 08:47 Location of Patient: PreOp Indication: Acute Post-Operative Pain, Requested by Surgeon Sedation Type: Sedate with meaningful contact maintained Preparation: Sterile Prep Position: Supine Catheter: Indwelling Needle Types: Pajunk Needle Gauge: 18 Ultrasound used to visualize needle placement: Yes Ultrasound used to observe medication spread: Yes Injectate: 0.5% Ropivacaine (see comment for volume) (15 ml + 15 ml NS + 4 mg Dexamethasone) Blood Aspirated: No Pain Paresthesia on Injection Noted: No Resistance on Injection: Normal Image Stored and Saved: Yes Events: Uneventful and Well Tolerated
--- NOTE | 2024-07-09 09:46 | P.ANPRN ---
Procedure Note - Anesthesia - Nerve Block Performed Right iPack Single Time Out Performed: Yes Date of Procedure: 07/09/24 Procedure Start Time: 08:48 Procedure Stop Time: 08:55 Location of Patient: PreOp Indication: Acute Post-Operative Pain, Requested by Surgeon Sedation Type: Sedate with meaningful contact maintained Preparation: Sterile Prep Position: Left Lateral Needle Types: Pajunk Needle Gauge: 21 Ultrasound used to visualize needle placement: Yes Ultrasound used to observe medication spread: Yes Injectate: 0.5% Ropivacaine (see comment for volume) (15 ml + 15 ml NS + 4 mg Dexamethasone) Blood Aspirated: No Pain Paresthesia on Injection Noted: No Resistance on Injection: Normal Image Stored and Saved: Yes Events: Uneventful and Well Tolerated
--- NOTE | 2024-07-09 10:25 | P.OP ---
Date of Procedure: 07/09/24 Preoperative Diagnosis: Severe osteoarthritis, right knee Postoperative Diagnosis: Severe osteoarthritis, right knee Procedure(s) Performed: Right total knee arthroplasty Implants: Long & Nephew Journey II CR Oxinium cruciate retaining femoral component size 7, right Long & Nephew Journey nonporous tibial baseplate size 6, right Long & Nephew Journey II, XLPE Deep Dished articular insert, size 9 mm, Size 5- 6, right Long & Nephew Journey Rosy II resurfacing patellar component, oval, 32 mm All components were cemented using Palacos R bone cement The articulation is Oxinium on polyethylene Anesthesia: spinal Surgeon: Ventura Ward Tobacco Conditioner #1: Amber Rowell Estimated Blood Loss (ml): 40 Pathology: none sent Condition: stable Disposition: PACU Indications for Procedure: The patient's knee is end-stage, and conservative management has failed. The operation of knee replacement has been discussed at length in the office, as well as potential risks and complications. These are inclusive of, but not limited to: Infection, bleeding, scarring, discomfort, stiffness, blood vessel and nerve damage, need for further surgery, failure to relieve symptoms, persistence, recurrence, or worsening of problems, loosening, dislocation, wear, blood clot, pulmonary embolism, , gait dysfunction, stiffness, and other risks as discussed in the office. Patient elects to proceed and the consent form has been signed. Operative Findings: The operative findings are consistent with severe osteoarthritis of the right knee Description of Procedure: The patient was seen in the preoperative area, the consent was reviewed and the operative site was marked with a skin marker. The patient verified the procedure and the operative site. An adductor canal pain catheter and an iPACK block were placed by anesthesia in the preoperative area. The patient was then brought to the operating room and positioned on the operating room table in the supine position. Preoperative antibiotics and a gram of tranexamic acid were given intravenously. A spinal anesthetic was administered by the anesthesia department. Care was taken to make sure that all pressure points were adequately padded. A tourniquet was placed on the upper thigh and the lower extremity was prepped with ChloraPrep and draped in usual sterile fashion. A universal time-out was then performed which confirmed the patient's name, surgical site, ALLERGIES, and consent. The lower extremity was then exsanguinated and tourniquet was inflated to 250 mmHg. A standard anterior midline approach to the knee was performed. The skin and subcutaneous tissue were sharply dissected down to the patellar tendon. A medial parapatellar arthrotomy was then performed. The knee was then extended, the patellar was everted, and the knee was flexed. The infra-patellar fat pad was removed in order to enhance exposure. The anterior horns of both menisci were excised, and a release was performed to the posterior medial aspect of the knee. On gross visual inspection, there was complete loss of articular cartilage in the medial and patellofemoral joint spaces. There was also significant cartilage damage in the lateral compartment. There were multiple periarticular osteophytes globally about the knee which were then removed with a Ronguer. The femoral canal was then opened with the 9.5 mm intramedullary drill. The 8 mm intramedullary adrian was then inserted into the femoral canal with the distal femoral cutting guide set for 5 of valgus. The distal femoral cutting block was then pinned in place. The intramedullary adrian was then removed, and the distal femur was then cut. The cutting block was then removed and the cut was checked for symmetry. The resected bone was then measured to confirm the appropriate distal femoral resection. Next, the sizing guide was then placed and set for 3 external rotation based off of the epicondylar axis and Littleton's line. Pins were then placed and the drill holes, and the femur was sized with the sizing stylus. The pins were then removed, and the sizing guide was then removed. The spikes of the appropriate size femoral block was then placed into the predrilled holes, and malleted into place. Two 45 mm pins were then placed into the fixation holes on the cutting block. An shahbaz wing was then used to ensure there would be no notching with the anterior cut. The anterior condyles were cut without notching. The anterior chord cut was then performed, followed by the posterior cut, posterior chamfer cut, and the anterior chamfer cut. The collateral ligaments were protected during the entire process. The cutting block was then removed. Any remaining bone and osteophytes were removed from the femur with a Ronguer. Attention was then directed to the tibia. The remaining ACL was removed with a Ronguer, and the tibia was then gently subluxed forward with a large bent knee retractor. Any remaining menisci were excised. The posterior lateral corner was cauterized in order to coagulate the lateral geniculate artery. The extra medullary tibial cutting guide was then placed, set for the appropriate rotation, slope, and depth of resection. The proximal tibia cutting guide was then pinned in place. Proximal tibia was then cut and sized. A curved osteotome was then used to remove any posterior osteophytes from the distal femur. The femoral trial was placed. A narrow saw blade was then used to remove the anterior intracondylar femoral bone. The CR notch trial was then placed. The tibial trial was placed with the appropriate-sized insert. The knee was able to fully extend and flex to 130 and was stable throughout all range of motion. The knee was then extended and the patella was everted. Patella was then measured, and then using an osteotomy guide, the patella was cut at the appropriate level. The patellar component was sized. The patellar drill guide was placed and the patella was drilled. The patella trial was then placed. The knee was then taken through range of motion with the patella trial and the patella tracked normally using the no thumbs technique. The patella trial was then removed. The knee was then flexed and lug holes were drilled through the femoral trial and the femoral trial was then removed. The tibial was then re- exposed, and the tibial broach guide was then pinned in place after it was set for the appropriate rotation to allow for the most coverage without overhang. The tibia was then reamed and broached. The femoral canal was plugged with autologous bone. The cut surfaces of bone were then irrigated with pulsatile lavage. The knee was also irrigated with Irrisept solution. The components were then opened, the cement was mixed. Cement was placed on the backside of the femoral, tibial, and patellar components. Cement was then applied to the tibial surface and pressurized into the surface using finger pressurization technique. The tibial component was then applied and excess cement was removed after it was impacted securely noted to be flush with the cut surface. In similar fashion, the cement was applied to the cut femoral surface, pressurized and using finger pressurization the component was impacted in place. Excess cement was removed. The polyethylene spacer was then implanted and locked into position. Patellar component was then applied in a similar technique and the patellar clamp was used to hold patella in place while the cement hardened. The knee was held in full extension while the cement hardened. Once the cement had fully hardened, the knee was reinspected. Any other cement extrusion was removed the final range of motion testing showed range of motion from 0-130 with excellent stability, both medial and laterally and appropriate alignment of the leg. Patella tracked normally. After the cemented hardened, the tourniquet was released and hemostasis was obtained. A second gram of transexamic acid was given intravenously. The knee was again irrigated. The knee was again taken through range of motion and found to be stable throughout all range of motion of 0-130, and the patella tracked normally. The fascia was then closed with 0 Vicryl followed by #2 strata fix suture. The subcutaneous tissue was closed with 3-0 Vicryl and 3-0 monocryl. Exofin glue was used for the skin and placed with the knee in flexion. After the glue had dried, and Optafoam silver impregnated dressing was applied. A lightly compressive dressing was applied using web roll and Han wrap. Patient was then transferred to the stretcher and taken to recovery room in stable condition. Sponge and needle counts were correct. The assistant women's basketball coach Amber Rowell NP was required due the complexity surgery and the need for a skilled surgical instruments inspector. She assisted in positioning, draping, retraction, and closure of the wound.
[2024-07-09] MEDS ORDERED: hydrOXYzine pamoate 25 MG CAP PO PRN (11:03)
[2024-07-09] MEDS ORDERED: NALOXONE 0.4 MG/ML 1 ML VIAL IV PRN (11:03)
[2024-07-09] MEDS ORDERED: MORPHINE SULFATE 2 MG/ML SYRINGE IVP PRN ×2 (11:03)
[2024-07-09] MEDS ORDERED: ONDANSETRON 4 MG/2 ML VIAL IVP PRN (11:03)
[2024-07-09] MEDS ORDERED: bisacodyL 10 MG SUPP RECTAL PRN (11:03)
[2024-07-09] MEDS ORDERED: MAGNESIUM HYDROXIDE 2,400 MG/30 ML CUP PO PRN (11:03)
[2024-07-09] MEDS ORDERED: NA PHOS,M-B/NA PHOS,DI-BA 133 ML ENEMA RECTAL PRN (11:03)
[2024-07-09] MEDS ORDERED: HYDROcodone/APAP 5-325MG 1 EACH TAB PO PRN ×2 (11:03)
[2024-07-09] MEDS: ROPIVACAINE 1,100 MG, SODIUM CHLORIDE 0.9% 500 ML 330 ML, EMPTY PAIN BALL 1 EACH MISCELLANE PRN (11:12)
[2024-07-09] MEDS: hydrALAZINE HCL 20 MG/ML 1 ML VIAL IVP STA (11:56)
[2024-07-09] MEDS: HYDROmorphone 0.5 MG/0.5 ML SYRINGE IVP PRN (12:01)
--- NOTE | 2024-07-09 12:07 | XR ---
EXAMINATION TYPE: XR knee limited RT DATE OF EXAM: 07/09/2024 COMPARISON: NONE CLINICAL INDICATION: Female, 78 years old with history of s/p tka, assess alignment; TECHNIQUE: Two views submitted FINDINGS: There is a prosthetic knee in near anatomic alignment. There is soft tissue edema and soft tissue e mphysema\air compatible with previous recent surgery. IMPRESSION: 1. Postoperative change. Appears in near-anatomic alignment [facility], , 07/09/2024 12:05 PM
[2024-07-09] MEDS ORDERED: HYDROcodone/APAP 7.5-325MG 1 EACH TAB PO PRN (13:12)
[2024-07-09] MEDS ORDERED: NON FORMULARY DRUG (Omeprazole [Omeprazole] 40 MG Capsule.Dr) PO PRN (15:18)
[2024-07-09] MEDS: LOSARTAN 50 MG TAB PO SCH (15:50)
[2024-07-09] MEDS: SENNOSIDES-DOCUSATE SODIUM 1 EACH TAB PO SCH (20:38)
[2024-07-09] MEDS: DORZOLAMIDE HCL 2% DROPS 10 ML BTL BOTH EYES SCH (20:38)
[2024-07-09] MEDS: ASPIRIN 325 MG TAB PO SCH (20:38)
[2024-07-09] MEDS: LATANOPROST 0.005% OPHTH DROPS 2.5 ML BTL BOTH EYES SCH (20:39)
[2024-07-09] MEDS ORDERED: ASPIRIN 81 MG PO SCH (21:00)
--- NOTE | 2024-07-10 02:01 | P.CONS ---
History of Present Illness - Reason for Consult Consult date: 07/09/24 Medical management - Chief Complaint Right total knee arthroplasty - History of Present Illness Patient is a 78-year-old female with a past medical history of hypertension, osteoarthritis, endometrial cancer with hysterectomy, gout and osteoarthritis was admitted to the hospital for elective right total knee arthroplasty. Postoperatively blood pressure went up to 153/66. Patient already took her morning dose of losartan. Patient is also on Lasix at home. Otherwise denied any complaints of chest pain or shortness of breath. No nausea vomiting abdominal pain or diarrhea. No cough or sputum production. No headache or dizziness or lightheadedness. Patient states that she still feels numbness in the right knee/lower extremity and unable to walk to the bathroom without support. Laboratory data is not available at this time. Review of Systems Constitutional: Patient denies any fever or chills . No generalized weakness or weight loss. Abdomen: Patient denied nausea vomiting and diarrhea and abdominal pain. Cardiovascular: Patient denies any chest pain or short of breath no palpitations. Respiratory: patient denied any cough or sputum production. No shortness of breath Neurologic: Patient denied any numbness or tingling. no headache. Musculoskeletal: Patient denies any complaints of joint swelling or deformity. Skin: Negative Psychiatric: Negative Endocrine: No heat or cold intolerance. No recent weight gain. Genitourinary: No dysuria or hematuria. All other 14 point ROS negative except the above Past Medical History Past Medical History: Cancer, GERD/Reflux, Hypertension, Osteoarthritis (OA) Additional Past Medical History / Comment(s): endometrial cancer with hyst,hx p recancerous polyp,gout, History of Any Multi-Drug Resistant Organisms: None Reported Past Surgical History: Cholecystectomy, Hysterectomy, Tubal Ligation Additional Past Surgical History / Comment(s): cataract sx right eye,Robotic Cholecystectomy w/ lysis of adhesions -2022 Past Anesthesia/Blood Transfusion Reactions: No Reported Reaction Additional Past Anesthesia/Blood Transfusion Reaction / Comm: no hx blood transfusion Smoking Status: Never smoker - Past Family History Father Family Medical History: Coronary Artery Disease (CAD), Myocardial Infarction (DC) Mother Family Medical History: Coronary Artery Disease (CAD) Medications and Allergies Home Medications Medication Instructions Recorded Confirmed Type Ascorbic Acid [Vitamin C] 1,000 mg PO DAILY 04/26/23 07/05/24 History Bacillus Coagulans [Digestive 1 tab PO DAILY 04/26/23 07/05/24 History Advantage Probiotic Chew] Cholecalciferol [Vitamin D3 (25 50 mcg PO DAILY 04/26/23 07/05/24 History Mcg = 1000 Iu)] Cyanocobalamin (Vitamin B-12) 1,000 mcg PO DAILY 04/26/23 07/05/24 History [Vitamin B-12] Elderberry Fruit and Flower [Black 1 cap PO DAILY 04/26/23 07/05/24 History Elderberry 575 mg Cap] Furosemide [Lasix] 20 mg PO DAILY 04/26/23 07/05/24 History Losartan Potassium 50 mg PO QAM 04/26/23 07/05/24 History Multivitamins, Thera [Multivitamin 1 tab PO DAILY 04/26/23 07/05/24 History (formulary)] Omeprazole 40 mg PO DAILY PRN 04/26/23 07/05/24 History Ubidecarenone [Coenzyme Q10] 100 mg PO DAILY 04/26/23 07/05/24 History Vit C/E/Zn/Coppr/Lutein/Zeaxan 1 cap PO DAILY 04/26/23 07/05/24 History [Preservision Areds 2 Softgel] allopurinoL [Zyloprim] 300 mg PO DAILY 04/26/23 07/05/24 History Dorzolamide HCl/Pf [Dorzolamide 2% 1 drop BOTH EYES HS 07/05/24 07/05/24 History Eye Drop] Latanoprost [Latanoprost 0.005%] 1 drop BOTH EYES HS 07/05/24 07/05/24 History Aspirin 325 mg PO BID #60 tab 07/10/24 Rx HYDROcodone/APAP 7.5-325MG [[place] 1 - 2 tab PO Q6H PRN #32 tab 07/10/24 Rx 7.5-325] Sennosides [Senokot] 2 tab PO DAILY PRN #60 tablet 07/10/24 Rx Allergies Allergy/AdvReac Type Severity Reaction Status Date / Time niacin Allergy Unknown Verified 07/09/24 08:30 pantoprazole [From Protonix] Allergy Nausea Verified 07/09/24 08:30 tizanidine Allergy Unknown Verified 07/09/24 08:30 Physical Exam Vitals: Vital Signs Temp Pulse Resp BP Pulse Ox 07/09/24 15:56 95 07/09/24 15:00 66 17 141/62 88 L 07/09/24 14:43 71 17 131/78 87 L 07/09/24 14:28 55 L 17 125/74 85 L 07/09/24 14:13 71 17 120/71 80 L 07/09/24 13:58 74 17 116/71 80 L 07/09/24 13:46 97.6 F 62 17 145/54 98 07/09/24 13:14 65 17 145/62 96 07/09/24 12:56 97.4 F L 66 17 153/66 96 07/09/24 12:26 60 16 152/79 98 07/09/24 12:09 64 16 159/76 97 07/09/24 12:01 64 16 193/84 97 07/09/24 11:46 61 16 207/78 97 07/09/24 11:41 61 16 206/78 97 07/09/24 11:25 58 L 16 186/84 97 07/09/24 11:10 57 L 16 161/72 93 L 07/09/24 10:55 62 20 163/65 92 L 07/09/24 09:04 52 L 16 164/67 96 07/09/24 08:14 98.3 F 53 L 16 182/74 95 Intake and Output 07/09/24 07/09/24 07/09/24 06:59 14:59 22:59 Intake Total 1051 Output Total 40 Balance 1011 Intake: IV 1051 Output: Estimated Blood Loss 40 Other: # Voids 2 Weight 95.8 kg PHYSICAL EXAMINATION: Patient is lying in the bed comfortably, no acute distress, awake alert and oriented.. HEENT: Normocephalic. Neck is supple. Pupils reactive. Nostrils clear. Oral cavity is moist. Neck reveals no JVD, carotid bruits, or thyromegaly. CHEST EXAMINATION: Trachea is central. Symmetrical expansion. Lung chinchilla clear to auscultation and percussion. CARDIAC: Normal S1, S2 with no gallops. No murmurs ABDOMEN: Soft. Bowel sounds normal. No organomegaly. No abdominal bruits. Extremities: reveal no edema. No clubbing or cyanosis Neurologically awake, alert, oriented x3 with well-coordinated movements. No focal deficits noted Skin: No rash or skin lesions. Psychiatric: Coperative. Nonsuicidal Musculoskeletal: No joint swelling or deformity. Normal range of motion. Right knee surgical site bandaged. Results CBC & Chem 7: 07/10/24 02:51 07/10/24 02:51 Assessment and Plan Assessment: Status post right total knee arthroplasty postoperative day 0 Hypertension. Blood pressure is elevated likely due to pain GERD History of endometrial cancer status post hysterectomy Osteoarthritis History of gout DVT prophylaxis as per primary team Plan: Patient will be continued on current pain management, bowel regimen and encourage incentive spirometry. Will start back on losartan and Lasix tomorrow. Blood pressure is better controlled now. Continue to follow closely. Follow- up CBC and BMP tomorrow. Further recommendations based on the clinical course. Thank you kindly for your consult.
[2024-07-10] MEDS: HYDROcodone/APAP 7.5-325MG 1 EACH TAB PO PRN (02:28)
--- NOTE | 2024-07-10 07:01 | P.PN ---
Progress Note - Text Progress Note Date: 07/10/24 Postoperative day # 1 status post total knee arthroplasty, and adductor canal catheter placed for postoperative analgesia, currently at ropivacaine 0.2% 8 mL per hour and continuous infusion, visual analogue scale is 2/10, patient using oral pain medication for breakthrough pain. Assessment and plan= Acute postoperative pain, adductor canal catheter for pain control, pain is well controlled we'll continue the same management.
[2024-07-10 07:58] VITALS: RESP 17
[2024-07-10 08:52] LABS: BUN/Creat Ratio 22.38 Ratio (12.00-20.00); Blood Urea Nitrogen 17.9 mg/dL (9.0-27.0); Calcium 9.2 mg/dL (8.7-10.3); Carbon Dioxide 21.8 mmol/L (21.6-31.8); Chloride 107 mmol/L (96-109); Glucose 136 mg/dL (70-110); Potassium 4.6 mmol/L (3.5-5.5); Sodium 142 mmol/L (135-145)
[2024-07-10] MEDS ORDERED: ASCORBIC ACID 500 MG TAB PO SCH (09:00)
[2024-07-10] MEDS ORDERED: NON FORMULARY DRUG (Ubidecarenone [Coenzyme Q10] 50 MG Capsule) PO SCH (09:00)
[2024-07-10] MEDS ORDERED: BACILLUS COAGULANS PO SCH (09:00)
[2024-07-10] MEDS ORDERED: NON FORMULARY DRUG (Elderberry Fruit And Flower [Black Elderberry 575 Mg Cap] 1 EACH Capsu PO SCH (09:00)
[2024-07-10] MEDS: MULTIVITAMINS, THERA 1 EACH TAB PO SCH (09:20)
[2024-07-10] MEDS: allopurinoL 300 MG TAB PO SCH (09:20)
[2024-07-10] MEDS: CHOLECALCIFEROL 25 MCG (1000 IU) TABLET PO SCH (09:20)
[2024-07-10] MEDS: VIT A,C & E-LUTEIN-MINERALS 1 EACH TAB PO SCH (09:20)
[2024-07-10] MEDS: CYANOCOBALAMIN 500 MCG TAB PO SCH (09:20)
[2024-07-10 09:24] LABS: Basophils # (A) 0.02 X 10*3/uL (0.00-0.10); Basophils % (A) 0.1 %; Eosinophils # (A) 0 X 10*3/uL (0.04-0.35); Eosinophils % (A) 0 %; HCT 36.7 % (37.2-46.3); HGB 11.8 g/dL (12.0-15.0); Lymphocytes # (A) 1.81 X 10*3/uL (0.90-5.00); Lymphocytes % (A) 9.9 %; MCH 29.9 pg (27.0-32.0); MCHC 32.2 g/dL (32.0-37.0); MCV 93.1 FL (80.0-97.0); Mean Platelet Volume 10.2 FL (9.5-12.2); Monocytes % (A) 4.9 %; NRBC Per 100 WBC 0 X 10*3/uL (0.00-0.01); Neutrophils # (A) 15.38 X 10*3/uL (1.80-7.70); Neutrophils % (A) 84.6 %; Platelet Count 279 X 10*3/uL (140-440); RBC 3.94 X 10*6/uL (4.10-5.20); RDW 14.2 % (11.5-14.5); WBC 18.21 X 10*3/uL (4.50-10.00)
--- NOTE | 2024-07-10 11:10 | P.DS ---
Providers Expected date of discharge: 07/10/24 Attending physician: Ventura Ward Consults: 07/09/24 11:03 Consult Physician Routine Consulting Provider: Aliiva George Consult Reason/Comments: medical mangement Do you want consulting provider notified?: Yes Primary care physician: Mellisa Basurto - Discharge Diagnosis(es) (1) Osteoarthritis of right knee Current Visit: Yes Status: Acute (2) S/P total knee arthroplasty Current Visit: Yes Status: Acute Hospital Course: This is a 78-year-old female with known history of degenerative arthritis of the right knee. The patient presented for evaluation as an outpatient. After discussion and consideration patient elects to proceed with total knee arthroplasty. The patient is seen preoperatively by Dr. Ward and medically cleared for surgery by their primary care physician. Patient is admitted to [facility] on 07/09/2024 for total knee arthroplasty. The procedure is performed without complication or sequelae. The patient is doing well postoperatively. Labs and vital signs are stable on day of discharge. On day of discharge patient's knee incision is healing well. There is minimal erythema. There is no drainage noted at this time. There is minimal soft tissue swelling to the knee. Patient has full foot and ankle motion without difficulty or pain. Calf is soft and nontender to palpation. Neurovascular status to the right lower extremity is intact. Patient is discharged home in good condition. Please see med rec for accurate list of home medications. Plan - Discharge Summary Discharge Rx Participant: No New Discharge Prescriptions: New HYDROcodone/APAP 7.5-325MG [[place] 7.5-325] 1 - 2 tab PO Q6H PRN #32 tab PRN Reason: Pain Sennosides [Senokot] 2 tab PO DAILY PRN #60 tablet PRN Reason: Constipation Aspirin 325 mg PO BID #60 tab No Action Ascorbic Acid [Vitamin C] 1,000 mg PO DAILY Bacillus Coagulans [Digestive Advantage Probiotic Chew] 1 tab PO DAILY Losartan Potassium 50 mg PO QAM Omeprazole 40 mg PO DAILY PRN PRN Reason: reflux Vit C/E/Zn/Coppr/Lutein/Zeaxan [Preservision Areds 2 Softgel] 1 cap PO DAILY allopurinoL [Zyloprim] 300 mg PO DAILY Cholecalciferol [Vitamin D3 (25 Mcg = 1000 Iu)] 50 mcg PO DAILY Cyanocobalamin (Vitamin B-12) [Vitamin B-12] 1,000 mcg PO DAILY Elderberry Fruit and Flower [Black Elderberry 575 mg Cap] 1 cap PO DAILY Furosemide [Lasix] 20 mg PO DAILY Multivitamins, Thera [Multivitamin (formulary)] 1 tab PO DAILY Ubidecarenone [Coenzyme Q10] 100 mg PO DAILY Latanoprost [Latanoprost 0.005%] 1 drop BOTH EYES HS Dorzolamide HCl/Pf [Dorzolamide 2% Eye Drop] 1 drop BOTH EYES HS Discharge Medication List Ascorbic Acid [Vitamin C] 1,000 mg PO DAILY 04/26/23 [History] Bacillus Coagulans [Digestive Advantage Probiotic Chew] 1 tab PO DAILY 04/26/23 [History] Cholecalciferol [Vitamin D3 (25 Mcg = 1000 Iu)] 50 mcg PO DAILY 04/26/23 [History] Cyanocobalamin (Vitamin B-12) [Vitamin B-12] 1,000 mcg PO DAILY 04/26/23 [History] Elderberry Fruit and Flower [Black Elderberry 575 mg Cap] 1 cap PO DAILY 04/26/23 [History] Furosemide [Lasix] 20 mg PO DAILY 04/26/23 [History] Losartan Potassium 50 mg PO QAM 04/26/23 [History] Multivitamins, Thera [Multivitamin (formulary)] 1 tab PO DAILY 04/26/23 [History] Omeprazole 40 mg PO DAILY PRN 04/26/23 [History] Ubidecarenone [Coenzyme Q10] 100 mg PO DAILY 04/26/23 [History] Vit C/E/Zn/Coppr/Lutein/Zeaxan [Preservision Areds 2 Softgel] 1 cap PO DAILY 04/26/23 [History] allopurinoL [Zyloprim] 300 mg PO DAILY 04/26/23 [History] Dorzolamide HCl/Pf [Dorzolamide 2% Eye Drop] 1 drop BOTH EYES HS 07/05/24 [History] Latanoprost [Latanoprost 0.005%] 1 drop BOTH EYES HS 07/05/24 [History] Aspirin 325 mg PO BID #60 tab 07/10/24 [Rx] HYDROcodone/APAP 7.5-325MG [[place] 7.5-325] 1 - 2 tab PO Q6H PRN #32 tab 07/10/24 [Rx] Sennosides [Senokot] 2 tab PO DAILY PRN #60 tablet 07/10/24 [Rx] Follow up Appointment(s)/Referral(s): Ventura Ward DO [Doctor of Osteopathic Medicine] - 2 Weeks Activity/Diet/Wound Care/Special Instructions: Weightbearing as tolerated with a walker. Leave dressing intact. Dressing may be removed by home care nurse or by patient in 7 days. Then change dressing twice daily until follow up. May shower with initial dressing intact and after removal. If dressing become saturated, please remove. Recommend use of compression stockings daily until follow up to help prevent swelling and blood clots. May remove at night before sleeping. Please take aspirin 325mg twice daily for 30 days to prevent blood clots. Please follow up with [facility] and call with any questions or concerns, . Discharge Disposition: HOME WITH HOME HEALTH SERVICES
--- NOTE | 2024-07-10 11:36 | XR ---
EXAMINATION TYPE: XR chest 1V portable DATE OF EXAM: 07/10/2024 COMPARISON: NONE CLINICAL INDICATION: Female, 78 years old with history of shortness of breath; , TECHNIQUE: XR chest 1V portable views of the chest. FINDINGS: The lungs are clear and there is no pneumothorax, pleural effusion, or focal pneumonia. Mild cardiom egaly but no overt failure. Osseous structures demonstrate hypertrophic and degenerative changes of t he spine. AC joint arthropathy. Generalized demineralization. IMPRESSION: 1. No acute process. [facility], , 07/10/2024 11:34 AM
[2024-07-10 11:49] LABS: Appearance,Urine Clear (Clear); Bilirubin,Urine Negative (Negative); Blood,Urine Negative (Negative); Color,Urine Colorless; Glucose,Urine (UA) Negative (Negative); Ketones,Urine Negative (Negative); Leukocyte Esterase,Urine Negative (Negative); Nitrite,Urine Negative (Negative); PH, Urine 6.5 (5.0-8.0); Protein,Urine Negative (Negative); Specific Gravity,Urine 1.012 (1.001-1.035); Urobilinogen,Urine <2.0 mg/dL (<2.0)
[2024-07-10 14:17] VITALS: BP 148/58; PULSE 76; TEMP 97
== END 2024-07-10 14:49 | disposition home health service (06) ==
LOC: OR 07:17 → 4SSUR 10:44 → OR 07-10 14:49
PROVIDERS: ATTEND Orthopaedic Surgery
DX: M17.11 Unilateral primary osteoarthritis, right knee (principal); M10.9 Gout, unspecified; K21.9 Gastro-esophageal reflux disease without esophagitis; I10 Essential (primary) hypertension; G89.18 Other acute postprocedural pain; Z79.82 Long term (current) use of aspirin; Z79.899 Other long term (current) drug therapy; Z85.42 Personal history of malignant neoplasm of other parts of uterus; Z90.49 Acquired absence of other specified parts of digestive tract; Z90.710 Acquired absence of both cervix and uterus; Z96.651 Presence of right artificial knee joint
CPT/HCPCS: 73560; 27447; 64999; 64448; J2250; J0360; J1100; J0690 ×2; J2405; J3010; J2795; J1171; 71045; 80048; 81003; 85025